=== PATIENT | female | born 1985 | race Caucasian/White ===

== ENCOUNTER → 2020-12-20 11:30 | Outpatient (ROUT) | payer OTHER, SELFPAY ==
[2020-12-20 11:38] LABS: Initial Volume 1.5 mL; Semen 30 min. Liquification? Yes
[2020-12-20 11:39] LABS: Final Volume 0.5 mL
== END ==
PROVIDERS: PCP Family Medicine; Visit Provider Obstetrics & Gynecology
DX: N97.9 Female infertility, unspecified (principal)
CPT/HCPCS: 58323

== ENCOUNTER → 2021-01-14 15:02 | Outpatient (CLI) | payer SELFPAY ==
[2021-01-14 16:15] LABS: Final Volume 0.5 mL; Initial Volume 1.5 mL; Semen 30 min. Liquification? Yes
== END ==
PROVIDERS: PCP Family Medicine; Referring Provider Specialist; Visit Provider Specialist
DX: N97.0 Female infertility associated with anovulation (principal)
CPT/HCPCS: 58323

== ENCOUNTER → 2021-01-26 08:09 | Outpatient (CLI) | payer OTHER, SELFPAY ==
[2021-01-26 10:21] LABS: HCG Quantitative /Beta subunit 39.4 mIU/mL
== END ==
PROVIDERS: PCP Family Medicine; Referring Provider Obstetrics & Gynecology; Visit Provider Obstetrics & Gynecology
DX: Z34.90 Encounter for supervision of normal pregnancy, unspecified, unspecified trimester (principal)
CPT/HCPCS: 36415; 84702

== ENCOUNTER → 2021-01-28 11:06 | Outpatient (CLI) | payer OTHER, SELFPAY ==
[2021-01-28 14:22] LABS: HCG Quantitative /Beta subunit 101 mIU/mL
== END ==
PROVIDERS: PCP Family Medicine; Referring Provider Obstetrics & Gynecology; Visit Provider Obstetrics & Gynecology
DX: Z34.90 Encounter for supervision of normal pregnancy, unspecified, unspecified trimester (principal)
CPT/HCPCS: 36415; 84702

== ENCOUNTER → 2021-02-03 11:38 | Outpatient (CLI) | payer OTHER, SELFPAY ==
[2021-02-03 12:19] LABS: HCG Quantitative /Beta subunit 1147.1 mIU/mL
== END ==
PROVIDERS: PCP Family Medicine; Referring Provider Obstetrics & Gynecology; Visit Provider Obstetrics & Gynecology
DX: Z34.90 Encounter for supervision of normal pregnancy, unspecified, unspecified trimester (principal)
CPT/HCPCS: 36415; 84702

== ENCOUNTER → 2021-02-09 17:04 | Outpatient (CLI) | payer OTHER, SELFPAY ==
[2021-02-09 21:05] LABS: HCG Quantitative /Beta subunit 13463 mIU/mL
== END ==
PROVIDERS: PCP Family Medicine; Referring Provider Obstetrics & Gynecology; Visit Provider Obstetrics & Gynecology
DX: Z34.90 Encounter for supervision of normal pregnancy, unspecified, unspecified trimester (principal)
CPT/HCPCS: 36415; 84702

== ENCOUNTER → 2021-03-14 16:00 | Outpatient (CLI) | payer OTHER, SELFPAY ==
[2021-03-14 17:25] LABS: Specimen Label NATERA KIT
[2021-03-14 17:32] LABS: Add Manual Diff / Slide Review NO; Basophils Absolute Auto 100 /uL (0-100); Basophils Percent Auto 0.5 % (0-2); Eosinophils Absolute Auto 0 /uL (0-450); Eosinophils Percent Auto 0.4 % (2-4); Hematocrit 35.7 % (36-46); Hemoglobin 12.3 g/dL (12.0-16.0); Lymphocytes Absolute Auto 1900 /uL (1100-4500); Lymphocytes Percent Auto 17.2 % (25-40); Mean Corpuscular HGB Conc 34.5 % (30-36); Mean Corpuscular Hemoglobin 31.1 PG (26-34); Mean Corpuscular Volume 90.1 fL (80-100); Monocytes Absolute Auto 300 /uL (0-900); Monocytes Percent Auto 3.1 % (3-14); Neutrophils Absolute Auto 8600 /uL (1500-7000); Neutrophils Percent Auto 78.8 % (50-75); Platelet Count 240 X10^3/uL (150-400); Red Blood Cell Count 3.96 X10^6/uL (4.0-5.2); Red Cell Distribution Width 13.1 % (11.6-14.8); White Blood Cell Count 10.9 X10^3/uL (4.5-11.0)
[2021-03-14 18:02] LABS: Appearance Urine UA CLEAR; Bilirubin Urine UA NEGATIVE (NEGATIVE); Color Urine UA YELLOW; Glucose Urine UA NEGATIVE (Negative); Ketones Urine UA NEGATIVE (NEGATIVE); Leukocyte Esterase Urine UA NEGATIVE (NEGATIVE); Nitrite Urine UA NEGATIVE (Negative); Occult Blood Urine UA TRACE-LYSED (Negative); Protein Urine UA NEGATIVE (Negative); Specific Gravity Urine UA 1.015 (1.000-1.035); Urobilinogen Urine UA 0.2 E.U./dL (0.2)
[2021-03-14 18:14] LABS: pH Urine UA 5.5 (4.5-8.0)
[2021-03-14 18:37] LABS: Hepatitis B Surface Antigen NEGATIVE s/c (NEGATIVE); Rubella Antibody IgG 28.5 IU/mL (>15)
[2021-03-14 20:46] LABS: Urine N gonorrhoeae NOT DETECTED
[2021-03-14 20:48] LABS: Urine Chlamydia NOT DETECTED
[2021-03-15 08:17] LABS: RPR Screen Non Reactive (Non Reactive)
== END ==
PROVIDERS: PCP Family Medicine; Referring Provider Obstetrics & Gynecology; Visit Provider Obstetrics & Gynecology
DX: Z3A.10 10 weeks gestation of pregnancy (principal); O30.001 Twin pregnancy, unspecified number of placenta and unspecified number of amniotic sacs, first trimester
CPT/HCPCS: 36415; 80055; 81003; 86850; 86900; 86901; 87086; 87491; 87591

== ENCOUNTER → 2021-04-21 11:34 | Outpatient (CLI) | payer OTHER, SELFPAY ==
[2021-04-24 14:08] LABS: Gestational Age Ultrasound (.); Insulin Dep Diabetes No (.); OSBR Risk 1IN 2018 (.); Results Report (.); Test Results *Screen Negative* (.)
== END ==
PROVIDERS: PCP Family Medicine; Referring Provider Obstetrics & Gynecology; Visit Provider Obstetrics & Gynecology
DX: Z34.92 Encounter for supervision of normal pregnancy, unspecified, second trimester (principal)
CPT/HCPCS: 36415; 82105

== ENCOUNTER → 2021-05-22 14:13 | Outpatient (CLI) | payer OTHER, SELFPAY ==
--- NOTE | 2021-05-22 14:14 | DI.US.S_ITS ---
PROCEDURE: US OB >= 14 WEEKS FETUS INDICATIONS: ANATOMY SCAN TWINS OUTSIDE/PRIOR DATING DATA: Last menstrual period (LMP): 12/30/2020 LMP-based estimated date of delivery (AURELIANO): 10/06/2021 First dating scan (date and location): 03/14/2021 Estimated date of delivery (AURELIANO) from first dating scan: 10/06/2021 TECHNIQUE: Real-time scanning was performed of the fetuses, with image documentation and biometric measurements. Endovaginal scanning: Not indicated COMPARISON: [facility], , OB >= 14 WEEKS FETUS, 05/08/2021, 14:13. FINDINGS: General: An intrauterine monochorionic and diamniotic twin is present, as evidenced by separate placentas, differing sexes, or an intervening membrane of greater than 2 mm. Amniotic fluid index (composite): 15.3 cm. Maternal cervical canal: 3.9 cm long and is closed. Normal lower limit is 2.5 cm. FETUS A: Fetus is located on the maternal left side, and is in variable presentation. Largest amniotic fluid pocket: 5.0 cm; normal range is 2-8 cm. Placental position is anterior, without previa. heart rate: 141 beats per minute. biometrics: Biparietal diameter: 5 cm, 21 weeks, 0 days Head circumference: 17.8 cm, 20 weeks, 2 days Abdominal circumference: 15.3 cm, 20 weeks, 3 days Femur length: 3.3 cm, 20 weeks, 1 day Clinically estimated gestational age: 20 weeks, 3 days Composite gestational age from present scan: 20 weeks, 3 days Estimated weight and percentile: 348 g, 41%. Anatomic survey: Neuro: Ventricles are normal at less than 10 mm. Cisterna magna is normal at 3-11 mm. Cerebellum is normal in size and morphology. Nuchal skin fold: Normal at less than 6 mm between 14 and 21 weeks gestational age. Face: Nose and lips, facial profile are normal. Spine: No evidence for spina bifida. Heart: Cardiac structures are not well seen due to position. Diaphragm: Diaphragm is intact. Stomach: Left-sided stomach is present. Kidneys: Not well seen. less than 7 mm in 3rd trimester. Cord: 3 vessel cord has orthotopic insertion. Cord insertion is approximately 3 cm from placental edge. Bladder: Normal in size. Extremities: All 4 extremities are visualized. FETUS B: Fetus is located on the maternal right side, and is in variable presentation. Largest amniotic fluid pocket: 5 cm; normal range is 2-8 cm. Placental position is anterior, without previa. heart rate: 136 beats per minute. biometrics: Biparietal diameter: 4.8 cm, 20 weeks, 4 days. Head circumference: 17.7 cm, 20 weeks, 1 day Abdominal circumference: 15.3 cm, 20 weeks, 3 days Femur length: 3.4 cm, 20 weeks, 5 days Clinically estimated gestational age: 20 weeks, 3 days Composite gestational age from present scan: 20 weeks, 3 days Estimated weight and percentile: 359 g, 50%. Anatomic survey: Neuro: Ventricles are normal at less than 10 mm. Cisterna magna is normal at 3-11 mm. Cerebellum is normal in size and morphology. Nuchal skin fold: Normal at less than 6 mm between 14 and 21 weeks gestational age. Face: Nose and lips, facial profile are normal. Spine: No evidence for spina bifida. Heart: 4 chambered heart is present, with normal ventricular outflow tracts. Diaphragm: Diaphragm is intact. Stomach: Left-sided stomach is present. Kidneys: No hydronephrosis. Normal ranges are less than 5 mm in 2nd trimester, less than 7 mm in 3rd trimester. Cord: 3 vessel cord has orthotopic insertion. Bladder: Normal in size. Extremities: All 4 extremities are visualized. IMPRESSION: 1. Twin live mono chorionic and diamniotic intrauterine gestation as described in detail above. 2. anatomic survey of fetus A is limited due to position. Cardiac structures, and bilateral kidneys are not well seen on this study. Fetus A cord insertion is approximately 3 cm from placental edge. Follow-up study is recommended. Rest of the anatomic survey is normal. 3. Normal anatomic survey for fetus B. We strive to produce accurate, complete, and clear reports of imaging services. To assist us in improving patient care, this report was composed using standard report templates and voice recognition software. Therefore, it may contain abnormal punctuation, insertions and/or omissions. Occasional wrong-word or sound-alike substitutions may occur. Though we review the report and make efforts to correct it, we do recommend that the report be read carefully in proper context to recognize any text inaccuracies. Dictated by: Neno Ferrer M.D. on 05/23/2021 at 10:39 Approved by: Neno Ferrer M.D. on 05/23/2021 at 11:00
== END ==
PROVIDERS: PCP Family Medicine; Referring Provider Obstetrics & Gynecology; Visit Provider Obstetrics & Gynecology
DX: O30.032 Twin pregnancy, monochorionic/diamniotic, second trimester (principal); Z3A.20 20 weeks gestation of pregnancy
CPT/HCPCS: 76811; 76812

== ENCOUNTER → 2021-07-04 11:01 | Outpatient (CLI) | payer OTHER, SELFPAY ==
[2021-07-04 12:41] LABS: Hemoglobin 11.9 g/dL (12.0-16.0)
[2021-07-04 13:00] LABS: GTT (PREG) 1 Hour PP 50gm Dose 83 mg/dL (76-139)
== END ==
PROVIDERS: PCP Family Medicine; Referring Provider Obstetrics & Gynecology; Visit Provider Obstetrics & Gynecology
DX: Z34.82 Encounter for supervision of other normal pregnancy, second trimester (principal); Z3A.36 36 weeks gestation of pregnancy
CPT/HCPCS: 36415; 82950; 85014; 85018

== ENCOUNTER 2021-07-25 09:39 | Outpatient (CLI) | payer OTHER, SELFPAY ==
--- NOTE | 2021-07-25 13:50 | PM.OBTRLD ---
Visit Information Visit Information Date of evaluation: 07/25/21 Primary OB Provider: Marta Collins On-call OB Provider: Marta Collins Reason for Evaluation: Yes non-stress test non-stress test reason: other (Monochorionic/diamniotic twins) [facility] Medical History (Updated 07/25/21 @ 11:50 by Marta Collins MD) Anxiety (~1999) GERD (gastroesophageal reflux disease) (~2018) Infertility (~2017) Insomnia (~1993) Kidney infection (~1989) Surgical History (Updated 03/10/21 @ 13:18 by Hailey Cowan, RN) Anesthesia Hx of breast implants, bilateral (~04/2019) [place] teeth extracted (~1999) Family History (Updated 03/10/21 @ 13:25 by Hailey Cowan, RAFAEL) Father History of heart attack Grandmother Multiple sclerosis Grandmother Colon cancer Esophageal cancer Grandfather Diabetes mellitus Social History (System 01/26/21 @ 08:29 by Dhara Espinal) marital status: number of children: 1 household members: spouse and children lives independently: Yes caregiver/support person: No housing: house pets and animals: No education level: vocational occupational status: employed current occupational exposures/hazards: No special anselmo needs: No seatbelt use: always do you feel safe at home: Yes Smoking Status: Never smoker second hand exposure: No alcohol intake: former substance use type: does not use during the past year weight has: decreased > 10 lbs well-balanced diet: daily or most days daily servings fruits/ve-4 caffeine: Yes (12 oz half caff coffee) Type(s) of exercise: walking, aerobic and weight lifting frequency: 3-4 times per week Evaluation Evaluation Baseline heart rate: 125 Variability: Moderate (11-25) monitor accelerations: Present Monitor Decelerations: Variable Contraction Frequency (minutes): 0 Category of Tracing: Appropriate for gestational age Diagnosis, Plan/Disposition Plan/Disposition Plan: Assessment: 35-year-old 1 para 0 at 29 weeks gestation with mono chorionic/diamniotic twins Appropriate for gestational age nonstress test x2 Plan: Follow-up in 1 week OB Disposition: home
== END 2021-07-25 10:58 | disposition home or self-care (01) ==
LOC: LABOR 10:49 → OB 07-26 14:28
PROVIDERS: PCP Family Medicine; Referring Provider Obstetrics & Gynecology; Visit Provider Obstetrics & Gynecology
DX: O30.033 Twin pregnancy, monochorionic/diamniotic, third trimester (principal); Z3A.29 29 weeks gestation of pregnancy
CPT/HCPCS: 59025; G0378; G0379

== ENCOUNTER 2021-08-02 10:45 | Outpatient (CLI) | payer OTHER, SELFPAY | END 2021-08-02 11:53 | disposition home or self-care (01) | LOC: OB 08-07 10:48 | PROVIDERS: PCP Family Medicine; Referring Provider Obstetrics & Gynecology; Visit Provider Obstetrics & Gynecology | DX: O09.513 Supervision of elderly primigravida, third trimester (principal); O30.003 Twin pregnancy, unspecified number of placenta and unspecified number of amniotic sacs, third trimester; Z3A.30 30 weeks gestation of pregnancy | CPT/HCPCS: 59025; G0378; G0379 ==

== ENCOUNTER 2021-08-09 09:19 | Outpatient (CLI) | payer OTHER, SELFPAY | END 2021-08-09 11:40 | disposition home or self-care (01) | LOC: LABOR 10:34 → OB 08-10 09:32 | PROVIDERS: PCP Family Medicine; Referring Provider Obstetrics & Gynecology; Visit Provider Obstetrics & Gynecology | DX: O30.003 Twin pregnancy, unspecified number of placenta and unspecified number of amniotic sacs, third trimester (principal); O09.513 Supervision of elderly primigravida, third trimester; Z3A.31 31 weeks gestation of pregnancy | CPT/HCPCS: 59025; G0378; G0379 ==

== ENCOUNTER 2021-08-18 11:00 | Outpatient (CLI) | payer OTHER, SELFPAY ==
--- NOTE | 2021-08-18 18:31 | P.TNLD_ITS ---
Visit Information Visit Information Date of evaluation: 08/18/21 Primary OB Provider: Marta Collins On-call OB Provider: Marta Collins Reason for Evaluation: Yes non-stress test non-stress test reason: other (Monochorionic/dichorionic twins) [facility] Medical History (Updated 07/25/21 @ 11:50 by Marta Collins MD) Anxiety (~1999) GERD (gastroesophageal reflux disease) (~2018) Infertility (~2017) Insomnia (~1993) Kidney infection (~1989) Surgical History (Updated 03/10/21 @ 13:18 by Hailey Cowan, RN) Anesthesia Hx of breast implants, bilateral (~04/2019) [place] teeth extracted (~1999) Family History (Updated 03/10/21 @ 13:25 by Hailey Cwoan, RAFAEL) Father History of heart attack Grandmother Multiple sclerosis Grandmother Colon cancer Esophageal cancer Grandfather Diabetes mellitus Social History (System 01/26/21 @ 08:29 by Dhara Espinal) marital status: number of children: 1 household members: spouse and children lives independently: Yes caregiver/support person: No housing: house pets and animals: No education level: vocational occupational status: employed current occupational exposures/hazards: No special anselmo needs: No seatbelt use: always do you feel safe at home: Yes Smoking Status: Never smoker second hand exposure: No alcohol intake: former substance use type: does not use during the past year weight has: decreased > 10 lbs well-balanced diet: daily or most days daily servings fruits/ve-4 caffeine: Yes (12 oz half caff coffee) Type(s) of exercise: walking, aerobic and weight lifting frequency: 3-4 times per week Evaluation Evaluation Baseline heart rate: 135 Variability: Moderate (11-25) monitor accelerations: Present Monitor Decelerations: Absent Status: Category l Diagnosis, Plan/Disposition Plan/Disposition Plan: Assessment: 35 year old at 33 weeks gestation with Monoamniotic/Dichorionic twins Reactive NST x2 Plan: D/C to home F/U 1 week OB Disposition: home
== END 2021-08-18 11:50 | disposition home or self-care (01) ==
LOC: OB 08-21 10:48
PROVIDERS: PCP Family Medicine; Referring Provider Obstetrics & Gynecology; Visit Provider Obstetrics & Gynecology
DX: O30.033 Twin pregnancy, monochorionic/diamniotic, third trimester (principal); Z3A.33 33 weeks gestation of pregnancy
CPT/HCPCS: 59025; G0378; G0379

== ENCOUNTER 2021-08-22 15:42 | Outpatient (CLI) | payer OTHER, SELFPAY | END 2021-08-22 16:50 | disposition home or self-care (01) | LOC: LABOR 16:22 → OB 08-24 07:22 | PROVIDERS: PCP Family Medicine; Referring Provider Obstetrics & Gynecology; Visit Provider Obstetrics & Gynecology | DX: O30.003 Twin pregnancy, unspecified number of placenta and unspecified number of amniotic sacs, third trimester (principal); Z3A.33 33 weeks gestation of pregnancy | CPT/HCPCS: 59025; G0378; G0379 ==

== ENCOUNTER 2021-08-29 12:32 | Outpatient (CLI) | payer OTHER, SELFPAY | END 2021-08-29 13:25 | disposition home or self-care (01) | LOC: LABOR 12:50 → OB 08-30 09:22 | PROVIDERS: PCP Family Medicine; Referring Provider Obstetrics & Gynecology; Visit Provider Obstetrics & Gynecology | DX: O30.033 Twin pregnancy, monochorionic/diamniotic, third trimester (principal); Z3A.34 34 weeks gestation of pregnancy | CPT/HCPCS: 59025; G0378; G0379 ==

== ENCOUNTER 2021-09-05 13:47 | Outpatient (CLI) | payer OTHER, SELFPAY | END 2021-09-05 14:40 | disposition home or self-care (01) | LOC: LABOR 14:48 → OB 09-06 07:42 | PROVIDERS: PCP Family Medicine; Referring Provider Obstetrics & Gynecology; Visit Provider Obstetrics & Gynecology | DX: O30.033 Twin pregnancy, monochorionic/diamniotic, third trimester (principal); Z3A.35 35 weeks gestation of pregnancy | CPT/HCPCS: 59025; G0378; G0379 ==

== ENCOUNTER → 2021-09-12 11:54 | Outpatient (CLI) | payer OTHER, SELFPAY ==
[2021-09-13 08:28] LABS: Strep Grp B PCR NEG for Grp B Strep
== END ==
PROVIDERS: PCP Family Medicine; Visit Provider Obstetrics & Gynecology
DX: Z34.83 Encounter for supervision of other normal pregnancy, third trimester (principal); Z3A.36 36 weeks gestation of pregnancy
CPT/HCPCS: 87653

== ENCOUNTER 2021-09-12 11:57 | Outpatient (CLI) | payer OTHER, SELFPAY | END 2021-09-12 12:40 | disposition home or self-care (01) | LOC: OB 09-14 14:24 | PROVIDERS: PCP Family Medicine; Referring Provider Obstetrics & Gynecology; Visit Provider Obstetrics & Gynecology | DX: O30.033 Twin pregnancy, monochorionic/diamniotic, third trimester (principal); Z3A.36 36 weeks gestation of pregnancy; Z34.83 Encounter for supervision of other normal pregnancy, third trimester | CPT/HCPCS: 59025; 87653; G0378; G0379 ==

== ENCOUNTER 2021-09-14 05:51 | Inpatient (IN) | payer OTHER, SELFPAY ==
[2021-09-14] VITALS (15 sets, daily range): BP systolic 83–141; BP diastolic 55–87; PULSE 51–89; RESP 12–20; TEMP 36–36.6; O2SAT 98–100
[2021-09-14 06:34] LABS: COVID19 -Nasal RAPID Negative (Negative)
[2021-09-14] MEDS: LACTATED RINGERS 1,000 ML 100 ML IV ×4 (06:36→20:12)
[2021-09-14 06:45] LABS: Add Manual Diff / Slide Review NO; Basophils Absolute Auto 0 /uL (0-100); Basophils Percent Auto 0.5 % (0-2); Eosinophils Absolute Auto 100 /uL (0-450); Hematocrit 35.8 % (36-46); Hemoglobin 12.1 g/dL (12.0-16.0); Lymphocytes Absolute Auto 1600 /uL (1100-4500); Lymphocytes Percent Auto 17.3 % (25-40); Mean Corpuscular HGB Conc 33.9 % (30-36); Mean Corpuscular Hemoglobin 31.3 PG (26-34); Mean Corpuscular Volume 92.5 fL (80-100); Monocytes Absolute Auto 500 /uL (0-900); Monocytes Percent Auto 5.5 % (3-14); Neutrophils Absolute Auto 7200 /uL (1500-7000); Neutrophils Percent Auto 75.7 % (50-75); Platelet Count 156 X10^3/uL (150-400); Red Blood Cell Count 3.87 X10^6/uL (4.0-5.2); Red Cell Distribution Width 13.3 % (11.6-14.8); White Blood Cell Count 9.5 X10^3/uL (4.5-11.0)
--- NOTE | 2021-09-14 07:41 | P.HPOB_ITS ---
OB HPI Date/Time Date of admission: 09/14/21 Date Patient Seen: 09/14/21 Time Patient Seen: 07:41 History of Present Condition Chief complaint: PRIMARY AURELIANO Calculator Estimated Delivery Date Method Current WG Current Estimate 10/06/21 LMP (Certain) 36w 6d Other Estimates 10/06/21 Ultrasound #1 36w 6d 10/07/21 Conception 36w 5d # 2 Estimated Gestational Age (weeks): 37 : 2 Para: 0 care: good care, initiated at week #, number of visits and pounds weight gain Dating criteria OB: LMP confirmed by 1st trimester US Ultrasounds: normal 1st trimester US and normal mid trimester US Obstetrical complications: other (Twins) Medical complications OB: none Indications Operative indications ( section): multiple gestation (mono/di) Preadmission Labs Last OB Lab Results: Blood Type A Positive 03/14/21 17:12 Antibody Screen Negative 03/14/21 17:12 Hematocrit 35.8 % (36-46) L 09/14/21 06:25 Hemoglobin 12.1 g/dL (12.0-16.0) 09/14/21 06:25 Hepatitis B Surface Antigen Negative s/c (NEGATIVE) 03/14/21 17 :12 Rubella Antibody 28.5 IU/mL (>15) 03/14/21 17:12 Glucose 1 Hour 83 mg/dL (76-139) 07/04/21 12:16 Group B Streptococcus (PCR) Neg for grp b strep 09/12/21 11:54 -: Chlamydia screen: negative, Gonorrhea screen: negative and Urine: negative -: PAP smear: Normal Genetic Screens: Cell-free DNA: Normal and Alpha-fetoprotein: Normal External Labs -: Urine: negative Prior (ies) Past Pregnancies Del. Date GA/Weeks Labor Lgth Wt Sex Route Outcome Anesthesia Place Delv Breastfeed Preg Comp Name 01/09/20 6 spontaneous spontaneous Delivery Date: 01/09/20 Last Updated by: Hailey Cowan R.N. Complete AB Evaluation Evaluation Baseline heart rate: 125 Variability: Moderate (11-25) monitor accelerations: Present Monitor Decelerations: Absent Status: Category l PFS Medical History (Updated 07/25/21 @ 11:50 by Marta Collins MD) Anxiety (~1999) GERD (gastroesophageal reflux disease) (~2018) Infertility (~2017) Insomnia (~1993) Kidney infection (~1989) Surgical History (Updated 03/10/21 @ 13:18 by Hailey Cowan, RN) Anesthesia Hx of breast implants, bilateral (~04/2019) [place] teeth extracted (~1999) Family History (Updated 03/10/21 @ 13:25 by Hailey Cowan RN) Father History of heart attack Grandmother Multiple sclerosis Grandmother Colon cancer Esophageal cancer Grandfather Diabetes mellitus Social History (System 01/26/21 @ 08:29 by Dhara Espinal) marital status: number of children: 1 household members: spouse and children lives independently: Yes caregiver/support person: No housing: house pets and animals: No education level: vocational occupational status: employed current occupational exposures/hazards: No special anselmo needs: No seatbelt use: always do you feel safe at home: Yes Smoking Status: Never smoker second hand exposure: No alcohol intake: former substance use type: does not use during the past year weight has: decreased > 10 lbs well-balanced diet: daily or most days daily servings fruits/ve-4 caffeine: Yes (12 oz half caff coffee) Type(s) of exercise: walking, aerobic and weight lifting frequency: 3-4 times per week Meds Home Medications and Allergies Home Medications Medication Instructions Recorded Confirmed Type prenat.vits,armando,yin-ghip-kttwb 1 tab PO DAILY 11/28/20 09/14/21 History progesterone micronized 200 mg 400 mg PO DAILY #30 caps 01/25/21 09/14/21 Rx capsule (Prometrium) aspirin 81 mg tablet,delayed 81 mg PO DAILY 03/10/21 09/14/21 History release (Lo-Dose Aspirin) docosahexaenoic acid 200 mg See Rx Instructions .Route .COMPLEX 03/10/21 09/14/21 History capsule ( DHA) lactobacillus combination no.9 4 PO DAILY 03/10/21 09/12/21 History billion cell capsule (Adult 50 Plus Probiotic) Allergies Allergy/AdvReac Type Severity Reaction Status Date / Time nitrofurantoin Allergy Intermediate Gastrointestinal Verified 09/12/21 10:48 [From Macrodantin] Upset Sulfa (Sulfonamide Allergy Intermediate Gastrointestinal Verified 09/12/21 10:48 Antibiotics) Upset OB Exam Narrative Exam Narrative: Generally: Patient is sitting up in bed, no acute distress Lungs: Clear to auscultation bilaterally Cardiovascular: Regular rate and rhythm Fundal height: 43 cm Estimated weight: 6 1/2 lb Extremities: 1+ edema Objective Labs Result Diagrams: 09/14/21 06:25 Labs: Laboratory Results - last 24 hr 09/14/21 09/14/21 06:10 06:25 WBC 9.5 RBC 3.87 L Hgb 12.1 Hct 35.8 L MCV 92.5 MCH 31.3 MCHC 33.9 RDW 13.3 Plt Count 156 Neut % (Auto) 75.7 H Lymph % (Auto) 17.3 L [place] % (Auto) 5.5 Eos % (Auto) 1.0 L Baso % (Auto) 0.5 Neut # (Auto) 7200 H Lymph # (Auto) 1600 [place] # (Auto) 500 Eos # (Auto) 100 Baso # (Auto) 0 SARS-CoV-2 (PCR) Negative Assessment and Plan Assessment and Plan Assessment and Plan narrative: Assessment: 35-year-old 2 para 0 at estimated gestational age of 37 weeks with mono chorionic/diamniotic twins Plan: Primary low-transverse section The risks, benefits, and alternatives to the procedure were explained to the patient. The risks including bleeding, infection, injury to the bowel, bladder, or ureters. She understands these risks and agrees to proceed. A full par Q was held and consent form was signed. Time Spent with Patient Total time spent with greater than 50% in coordination of care (as documented) at patient's floor/unit and/or counseling patient:: 15-24 minutes
--- NOTE | 2021-09-14 07:44 | PM.PREOP ---
Pre-operative Note COVID-19 COVID-19 status: Negative Result date/Date tested (Pos, Neg/Pending): 09/14/21 Criteria for continued procedure: Non-surgical alternatives not available or appropriate per current SOC Interval Note History & Physical reviewed/Exam performed by Physician: Yes Changes to H&P: No H&P completed within 30 days and has changed as indicated here:: 09/14/21
[2021-09-14] MEDS: CEFAZOLIN 2 GM/20 ML SYRINGE IV (08:00)
--- NOTE | 2021-09-14 08:09 | SUR.OPER ---
Supine on Padded OR bed, head on pillow, safety belt at thigh, arms secured on padded arm boards at <90 degrees abduction. Bump under right buttock. Legs uncrossed with pillow under knees, gel pad to heels, tape over blanket to lower legs. Directed and approved by surgeon
--- NOTE | 2021-09-14 08:34 | SUR.OPER ---
martinez inserted with ease, clear yellow urine was visualized in tubing prior to balloon inflation. secured prior to leaving OR
--- NOTE | 2021-09-14 08:48 | SUR.OPER ---
Viable baby girls born at B: 0842 and A: 0839. [place] blood (1 set each) and placenta sent with OB RN
--- NOTE | 2021-09-14 09:34 | PM.OBCS.1 ---
Operative Date/Time/Diagnoses Date of procedure: 09/14/21 Time of procedure: 09:34 Pre-op diagnosis: 37 weeks gestation [place] chorionic/diamniotic twin Breech presentation for baby A Post-op diagnosis: same Procedure & Clinicians Procedure: Primary low-transverse section Same procedure as scheduled: Yes Indications: 37 weeks gestation Bland chorionic/diamniotic twins Breech presentation for baby A Surgeon: Marta Marquez Yes if Unassisted: No Operation Research Analyst: Stefania Hubbard Reason for Operation Research Analyst: The miller head assistant wet process was necessary to retract upon entry of the abdomen and uterus. She assisted with delivery of both infants. On closure of the uterus and abdomen she retracted and clipped suture. She closed the contralateral fascia. Anesthesia Type: Spinal (With Duramorph) Operative Notes Findings: Baby A in the footling breech presentation, female Baby B in the vertex presentation, female Normal uterus, tubes, and ovaries Closure Type: primary Specimen(s): cord blood Intraoperative meds administered: Duramorph, Ketorolac and Pitocin Applied: Catheter (To continuous drainage) Estimated Blood Loss (mL): 350 Blood products transfused: none Procedure in detail: The patient was taken to the operating room where she was placed in the seated position. Spinal anesthesia was administered. She was then placed in the dorsal supine position with a leftward tilt. She was prepped and draped in the usual sterile fashion. A timeout was performed. After spinal analgesia was found to be adequate, a Pfannenstiel skin incision was made 2 fingerbreadths above the pubic symphysis and carried through to the underlying layer fascia. The fascia was nicked in the midline, and the incision extended bilaterally with the Hilliard scissors. The superior aspect of the fascial incision was grasped with a Lenore clamps, elevated, and the underlying rectus muscles dissected off sharply and bluntly. Attention was then turned to the inferior aspect of this incision which in a similar fashion was grasped with a Guero clamps, elevated, and the underlying rectus muscles dissected off sharply and bluntly. The rectus muscles were in the midline. The peritoneum was identified, grasped between 2 hemostats, and entered sharply with the Metzenbaum scissors. This incision was extended superiorly and inferiorly with good visualization of the bladder. The bladder blade was inserted. The vesicouterine peritoneum was identified, grasped with the pickup, and entered sharply with the Metzenbaum scissors. This incision was extended bilaterally, and the bladder flap was created digitally. The bladder blade was reinserted. The lower uterine segment was incised in a transverse fashion with the scalpel. Upon entering the amniotic sac there was a large amount of clear amniotic fluid. The was delivered by total breech extraction. The nose and mouth were suctioned with bulb suction. The remainder of the body delivered without difficulty. The cord was double clamped and cut after 1 minute. The infant was handed off to waiting RN and RT. While we were waiting to clamp and cut the first baby's cord, the second baby was delivered without difficulty in the vertex presentation. The nose and mouth were suctioned with bulb suction. The remainder of the body delivered without difficulty. The cord was double clamped and cut after 1 minute. The was handed off to awaiting RN and RT. The placenta was delivered manually. The uterus was cleared of all clots and debris. The uterine incision was repaired with #1 chromic in a running interlocking fashion, and a second layer the same suture was used for an imbricating layer. Hemostasis was achieved. The tubes and ovaries were examined and were found to be normal. The gutters were cleared of all clots and debris. The bladder flap was reapproximated using 2-0 Vicryl in a running fashion. The parietal peritoneum was closed using 2-0 Vicryl in a running fashion. The fascia was reapproximated using 0 Vicryl in a running fashion. Subcutaneous layer was copiously irrigated with warm normal saline. 6 simple interrupted sutures of 3-0 Vicryl were placed to reapproximate the subcutaneous layer. The skin was closed with 4-0 Monocryl in a subcuticular fashion. Steri-Strips were placed. An Aquacel dressing was placed. The uterus was expressed of a small amount of old blood. Sponge, lap, and instrument counts were correct x-2. The patient tolerated the procedure well, and was taken to PACU in stable condition. Complications: none [place] Baby 1: Infant Gender: Female Presentation: breech Details: [place] Placental Delivery Description: Expressed Cord Vessel Description: 3 Vessels score (1 min): 8 score (5 min): 8 weight: 5 lb 11.4 oz 2: Infant Gender: Female Presentation: vertex Position: Left Occiput Anterior Placental Delivery Description: Expressed Cord Vessel Description: 3 Vessels score (1 min): 8 score (5 min): 9 weight: 5 lb 8.9 oz Post-operative Condition: stable Disposition: PACU Aftercare: routine postop
--- NOTE | 2021-09-14 10:02 | SUR.PHASEI ---
0950: Pt A&Ox4, VSS, denies any distress, and ready to transfer to room. Report given to RAFAEL Nicolas using SBAR with time allowed for questions. Pt transferred to room 5 bedside handoff given.
[2021-09-14] MEDS: OXYCODONE IR 5 MG TABLET PO ×2 (14:09→20:13)
--- NOTE | 2021-09-14 15:46 | PM.EVENT ---
Event Note Date Patient Seen: 09/14/21 Time Patient Seen: 15:46 Event Note (Rapid Response, Code, or fall): Called to patient's bedside due to hemorrhage. Patient had approximately 1300 cc blood loss in clot and watery blood after a . Vital signs were stable. On examination: Fundus is 3 above you and deviated to the left side. Plan: To the operating room for evacuation of clot, and possible placement of Bakri balloon. The risks, benefits, and alternatives to the procedure were explained to the patient. The risks including bleeding, infection, and uterine perforation. She understands these risks and agrees to proceed. A full par Q was held and consent form was signed.
--- NOTE | 2021-09-14 15:54 | SUR.OPER ---
Lithotomy on padded OR bed, head on pillow, arms secured on padded arm boards at <90 degrees abduction. Legs secured in padded yellow fins stirrups.
[2021-09-14] MEDS: TRANEXAMIC ACID 1,000 MG in SODIUM CHLORIDE 0.9% 100 ML 200 MG IV (16:28)
[2021-09-14 16:38] LABS: Hematocrit 25.2 % (36-46); Hemoglobin 8.4 g/dL (12.0-16.0)
[2021-09-14] MEDS: LACTATED RINGERS 500 ML 1000 ML IV (16:54)
--- NOTE | 2021-09-14 16:57 | SUR.PHASEI ---
1633 Pt's BP 83/55 (53)> MD Fernandes requested and gave verbal order for 500 ML bolus of LR to help with pressures. Pt A&Ox4.
[2021-09-14 17:10] LABS: Add Manual Diff / Slide Review NO; Basophils Absolute Auto 100 /uL (0-100); Basophils Percent Auto 0.5 % (0-2); Eosinophils Absolute Auto 100 /uL (0-450); Eosinophils Percent Auto 0.5 % (2-4); Lymphocytes Absolute Auto 1700 /uL (1100-4500); Lymphocytes Percent Auto 12.3 % (25-40); Mean Corpuscular HGB Conc 34.2 % (30-36); Mean Corpuscular Hemoglobin 31.7 PG (26-34); Mean Corpuscular Volume 92.8 fL (80-100); Monocytes Absolute Auto 900 /uL (0-900); Monocytes Percent Auto 6.3 % (3-14); Neutrophils Absolute Auto 11200 /uL (1500-7000); Neutrophils Percent Auto 80.4 % (50-75); Platelet Count 164 X10^3/uL (150-400); Red Blood Cell Count 2.65 X10^6/uL (4.0-5.2); Red Cell Distribution Width 13.1 % (11.6-14.8); White Blood Cell Count 13.9 X10^3/uL (4.5-11.0)
--- NOTE | 2021-09-14 17:11 | SUR.PHASEI ---
Report called to Cely HALL who was updated on pt's condition.
[2021-09-14] MEDS: METHYLERGONOVINE 0.2 MG/ML VIAL IM (17:24)
[2021-09-14 19:48] LABS: Hematocrit 22.4 % (36-46); Hemoglobin 7.6 g/dL (12.0-16.0)
[2021-09-15] MEDS: METHYLERGONOVINE 0.2 MG TABLET PO ×3 (00:10→12:24)
[2021-09-15] MEDS: OXYCODONE IR 5 MG TABLET PO ×2 (00:10→04:25)
[2021-09-15 01:18] VITALS: BP 115/66; PULSE 69; RESP 16; TEMP 36.8
[2021-09-15] MEDS: IBUPROFEN 600 MG TABLET PO ×2 (04:25→19:16)
--- NOTE | 2021-09-15 07:57 | PM.GYNOP.1 ---
Operative Date/Time/Diagnoses Date of procedure: 09/14/21 Time of procedure: 16:20 Pre-op diagnosis: hemorrhage Large amount of clot in the uterus Status post primary section Post-op diagnosis: same Procedure & Clinicians Procedure: Procedures Operation Date: 09/14/21 07:45 Actual Procedure Side Surgeon p Section (Twins) Marta Collins MD Operation Date: 09/14/21 16:00 Actual Procedure Side Surgeon p Dilation and Curettage Marta Collins MD Indications: hemorrhage of clot and watery blood Uterus full of clots Surgeon: Marta Collins Anesthesia Type: Spinal Operative Notes Findings: 800 cc of clot and blood in the uterus Uterus at 3 above U at the beginning of the procedure Closure Type: not applicable Specimen(s): none Applied: catheter (Su to continuous drainage) Estimated blood loss (mL): 800 Blood products transfused: none Procedure in detail: After informed consent was obtained, the patient was taken to the operating room where she was placed in the dorsal supine position. After adequate spinal anesthesia was achieved, she was placed in the dorsal lithotomy position, and prepped and draped in the usual sterile fashion. A time-out was performed. A bivalve speculum was placed into the vagina and a large amount of clot came out of the vagina. Ring forceps were used inside the uterus to remove a large amount of clot. A # 12 suction curette was placed into the uterus. Five passes with suction revealed a large amount of blood and clot. Pitocin was given in the IV fluids. The uterus contracted down well. The fundus was at firm at the completion of the procedure. Complications: none Post-operative Condition: stable Disposition: PACU Plan for aftercare: To the center after recovery
[2021-09-15 08:43] LABS: Hematocrit 29.9 % (36-46); Hemoglobin 10.1 g/dL (12.0-16.0)
[2021-09-15] MEDS: ACETAMINOPHEN 325 MG TABLET 650 MG PO ×2 (10:10→19:16)
[2021-09-15] MEDS: OXYCODONE IR 10 MG TABLET PO ×4 (10:15→23:19)
[2021-09-15] MEDS: DOCUSATE 100 MG CAPSULE 200 MG PO (12:25)
[2021-09-16] MEDS: IBUPROFEN 600 MG TABLET PO ×3 (01:28→14:14)
[2021-09-16] MEDS: ACETAMINOPHEN 325 MG TABLET 650 MG PO ×3 (01:28→14:14)
[2021-09-16] MEDS: OXYCODONE IR 5 MG TABLET PO ×2 (03:59→10:38)
--- NOTE | 2021-09-16 07:19 | PM.OBPNLAB ---
Date/Time Date Patient Seen: 09/15/21 Time Patient Seen: 09:20 Status status: Category l
[2021-09-16] MEDS: DOCUSATE 100 MG CAPSULE 200 MG PO (08:29)
[2021-09-16] MEDS: PRENATAL VIT,CALC/IRON/FOLIC 1 TABLET 1 TAB PO (08:29)
--- NOTE | 2021-09-17 15:11 | P.PNOB_ITS ---
Subjective - OB Subjective Patient comments: no complaints, pain well controlled and tolerating diet baby status: doing well (X2) and nursing well (X2) [place] feeding status: breast and bottle feeding Date Patient Seen: 09/15/21 Interval history: 35-year-old 1 para 1002 postop day # 1 status post primary low- transverse section and returned to the operating room for evacuation of uterine clots. She received 2 units of packed red blood cells overnight. She is feeling well this morning. is going well. Pain is well controlled. Bleeding has been normal lochia. Patient not feeling lightheaded or dizzy. Exam Vital Signs (past 8 hours): Oxygen Delivery Method Room Air Narrative Exam Narrative: Generally: Patient is sitting up in bed, nursing infant, no acute distress Lungs: Clear to auscultation bilaterally Cardiovascular: Regular rate and rhythm Fundus: Firm at U -1 Incision: Clean dry and intact with Aquacel dressing Extremities: 1+ edema, negative Homans Objective Labs Result Diagrams: 09/15/21 08:25 Assessment & Plan Plan day: 1 plan OB: routine postop care Time Spent With Patient Time: Total time spent is greater than 50% in coordination of care (as documented) at patient's floor/unit and/or counseling patient: Time with patient: 15-24 minutes
--- NOTE | 2021-09-17 15:14 | P.DS_ITS ---
Discharge Providers Provider Date of admission: 09/14/21 05:51 Discharge Date: 09/16/21 Primary care physician: Jean Estrada MD Consults: 09/14/21 10:17 Consult to Heater Operator Helper Routine Comment: Discharge provider: Marta Collins MD Summary Hospital Course Date Patient Seen: 09/15/21 Time Patient Seen: 07:30 Diagnoses: Thirty-seven weeks gestation [place] chorionic/diamniotic twins Status post primary low-transverse section Status post return to operating room for evacuation of uterine clot after hemorrhage Hospital Course: Patient is a 35-year-old 1 para 1002 who presented on September 14, 2021 for a scheduled primary low-transverse section of mono chorionic/diamniotic twins at 37 weeks gestation. She underwent this procedure without complication. Several hours later patient had a hemorrhage and was found to have a uterus full of clot. She was taken back to the operating room for evacuation of clot under spinal anesthesia. She received 2 units of packed red blood cells due to tachycardia and feeling lightheaded. The remainder of her course was unremarkable. She was discharged home on day # 2. She is to follow up at 1 week for Aquacel dressing removal. Peripartum Data Delivery Method: Section Procedures: Primary low-transverse section Spinal anesthesia Return to operating room for evacuation of uterine clot under spinal anesthesia complications: uterine atony (With uterus full of clot) [place] 1: Gender: Female Disposition of : home 2: Gender: Female Disposition of : home Status at Discharge Cognitive/behavioral status at discharge: oriented Functional status at discharge: independent ambulation Overall status at discharge: patient is progressing back to baseline Time Spent with Patient Time attestation: Total time spent providing and/or coordinating discharge services: Time spent: Less than 30 minutes Objective Labs Result Diagrams: 09/15/21 08:25 Exam Vital Signs (past 8 hours): Oxygen Delivery Method Room Air Narrative Exam Narrative: Generally: Patient is sitting up in bed, no acute distress Lungs: Clear to auscultation bilaterally Cardiovascular: Regular rate and rhythm Fundus: Firm at U -1 Incision: Clean dry and intact with Aquacel dressing Extremities: 1+ edema, negative Homans Discharge Plan Discharge Plan Patient Disposition: Home Provider Discharge Comment: Call with fever, chills, or redness or drainage around the incision Call with bleeding more than a pad in an hour Ibuprofen 600 mg every 6 hours as needed Tylenol 650 mg every 6 hours as needed Discharge orders & Medications Prescriptions: New oxycodone 5 mg tablet 5 mg PO Q4H PRN (Reason: pain) Qty: 30 0RF Rx Instructions: 1-2 tabs every 4 hours as needed docusate sodium [Colace] 100 mg capsule 100 mg PO DAILY Qty: 30 0RF Continued prenat.vits,armando,lqw-yrdn-youdt Tablet 1 tab PO DAILY Adult 50 Plus Probiotic 4 billion cell capsule PO DAILY DHA 200 mg capsule See Rx Instructions .ROUTE .COMPLEX Rx Instructions: per doctor as prescribed Discontinued progesterone micronized [Prometrium] 200 mg capsule 400 mg PO DAILY Qty: 30 4RF aspirin [Lo-Dose Aspirin] 81 mg tablet,delayed release (DR/EC) 81 mg PO DAILY Follow up/Referrals: Marta Collins MD [Physician] - 1 Week (If no call from 's office for an appointment, please call of and make an appointment for aquacel removal in 1 week.) Diet/Activity/Treatments Diet: Regular Activity: No heavy lifting Skin/Wound/Dressing Care Report to your healthcare provider any signs of infection, such as:: chills, fever, increased pain, unusual drainage and unusual redness Dressing: Do not remove Visit Report/Discharge Packet Instructions: DI for , DI for Prescription Opioid Use Discharge Data Primary Care Provider: Jean Estrada
== END 2021-09-16 14:20 | disposition home or self-care (01) | DRG 787 ==
PROVIDERS: Admitting Provider Obstetrics & Gynecology; PCP Family Medicine; Referring Provider Obstetrics & Gynecology; Visit Provider Obstetrics & Gynecology
PROC: 10D00Z1 Extraction of Products of Conception, Low, Open Approach (ICD-10-PCS; CPT 59514; principal; 2021-09-14 07:45)
DX: O32.8XX1 Maternal care for other malpresentation of fetus, fetus 1 (principal); O72.2 Delayed and secondary postpartum hemorrhage; O30.033 Twin pregnancy, monochorionic/diamniotic, third trimester; Z37.2 Twins, both liveborn; Z3A.36 36 weeks gestation of pregnancy
CPT/HCPCS: 36415; 36430; 59050; 59160; 59510; 59514; 85014; 85018; 85025; 86850; 86900; 86901; 87635; C9803; P9016; J0171; J0690; J1885; J2210; J2250; J2274; J2405; J2590; J2765

== ENCOUNTER → 2022-12-11 19:49 | Outpatient (ROUT) | payer OTHER, SELFPAY ==
[2022-12-11 22:34] LABS: Urine N gonorrhoeae NOT DETECTED
[2022-12-11 22:46] LABS: Urine Chlamydia NOT DETECTED
== END ==
PROVIDERS: PCP Family Medicine; Visit Provider Obstetrics & Gynecology
DX: Z34.81 Encounter for supervision of other normal pregnancy, first trimester (principal); Z3A.08 8 weeks gestation of pregnancy
CPT/HCPCS: 87491; 87591

== ENCOUNTER → 2022-12-20 14:18 | Outpatient (CLI) | payer OTHER, SELFPAY ==
--- NOTE | 2022-12-20 14:19 | DI.US.S_ITS ---
PROCEDURE: US OB <= 14 WEEKS FETUS INDICATIONS: BLEEDING IN EARLY OUTSIDE/PRIOR DATING DATA: Last menstrual period (LMP): 10/12/2022. LMP-based estimated date of delivery (AURELIANO): 07/19/2023. First dating scan (date and location): Today's exam. Estimated date of delivery (AURELIANO) from first dating scan: 07/15/2023. TECHNIQUE: Real-time scanning was performed of the fetus and maternal pelvic organs, with image documentation. Endovaginal scanning was also performed to better visualize the fetus and maternal ovaries. COMPARISON: [facility], , OB <= 14 WEEKS FETUS, 12/11/2022, 15:06. FINDINGS: Single living intrauterine . Embryo: Fetus measures 3.5 centimeters, 10 weeks 3 days. Heart rate: 157 beats per minute Maternal organs: Ovaries simple appearing right ovarian cyst. Left ovary not visualized due to overlying bowel gas. Subchorionic bleed close to the closed cervical os, measuring 4.4 x 1.5 x 4.9 centimeter. IMPRESSION: Single living intrauterine at 10 weeks 3 days, AURELIANO of 07/15/2023. Findings are concordant with clinical dating. Subchorionic bleed measuring 4.4 x 1.5 x 4.9 centimeter. We strive to produce accurate, complete, and clear reports of imaging services. To assist us in improving patient care, this report was composed using standard report templates and voice recognition software. Therefore, it may contain abnormal punctuation, insertions and/or omissions. Occasional wrong-word or sound-alike substitutions may occur. Though we review the report and make efforts to correct it, we do recommend that the report be read carefully in proper context to recognize any text inaccuracies. Dictated by: Maxime Ortiz M.D. on 12/20/2022 at 15:24 Approved by: Maxime Ortiz M.D. on 12/20/2022 at 15:25
== END ==
PROVIDERS: PCP Family Medicine; Referring Provider Obstetrics & Gynecology; Visit Provider Obstetrics & Gynecology
DX: O20.9 Hemorrhage in early pregnancy, unspecified (principal); Z3A.10 10 weeks gestation of pregnancy
CPT/HCPCS: 36415; 76801; 76817

== ENCOUNTER → 2022-12-20 15:09 | Outpatient (CLI) | payer OTHER, SELFPAY ==
[2022-12-21 07:45] LABS: Miscellaneous to LabCorp NATERA KIT
== END ==
PROVIDERS: PCP Family Medicine; Referring Provider Obstetrics & Gynecology; Visit Provider Obstetrics & Gynecology
DX: Z34.81 Encounter for supervision of other normal pregnancy, first trimester (principal); Z3A.10 10 weeks gestation of pregnancy
CPT/HCPCS: 36415

== ENCOUNTER → 2023-02-05 14:27 | Outpatient (CLI) | payer OTHER, SELFPAY ==
[2023-02-05 14:50] LABS: Add Manual Diff / Slide Review NO; Basophils Absolute Auto 0 /uL (0-100); Basophils Percent Auto 0.4 % (0-2); Eosinophils Absolute Auto 100 /uL (0-450); Eosinophils Percent Auto 0.5 % (2-4); Hematocrit 35.1 % (36-46); Hemoglobin 12.1 g/dL (12.0-16.0); Lymphocytes Absolute Auto 1600 /uL (1100-4500); Mean Corpuscular HGB Conc 34.5 % (30-36); Mean Corpuscular Hemoglobin 31.5 PG (26-34); Mean Corpuscular Volume 91.3 fL (80-100); Monocytes Absolute Auto 400 /uL (0-900); Monocytes Percent Auto 3.6 % (3-14); Neutrophils Absolute Auto 9500 /uL (1500-7000); Neutrophils Percent Auto 81.5 % (50-75); Platelet Count 231 X10^3/uL (150-400); Red Blood Cell Count 3.85 X10^6/uL (4.0-5.2); Red Cell Distribution Width 14.4 % (11.6-14.8); White Blood Cell Count 11.6 X10^3/uL (4.5-11.0)
[2023-02-05 15:49] LABS: Hepatitis B Surface Antigen NEGATIVE s/c (NEGATIVE)
[2023-02-05 16:07] LABS: HIV 1 & 2 Ab/Ag 4th Gen Combo NEGATIVE (NEGATIVE); Hep C Virus Ab w/Reflex Quant NEGATIVE s/c (NEGATIVE)
[2023-02-06 09:32] LABS: RPR Screen Non Reactive (Non Reactive); Varicella IgG Antibody 672 index (Immune >165)
[2023-02-07 23:13] LABS: AFP Value 29.8 ng/mL (.); Gest Age on Col Date 16.6 weeks (.); Insulin Dep Diabetes No (.); OSBR Risk 1IN 10000 (.); Results Report (.); Test Results *Screen Negative* (.)
== END ==
PROVIDERS: PCP Family Medicine; Referring Provider Obstetrics & Gynecology; Visit Provider Obstetrics & Gynecology
DX: Z34.82 Encounter for supervision of other normal pregnancy, second trimester (principal); Z3A.16 16 weeks gestation of pregnancy
CPT/HCPCS: 36415; 80055; 82105; 86787; 86803; 86850; 86900; 86901; 87086; 87389

== ENCOUNTER → 2023-03-11 12:31 | Outpatient (CLI) | payer OTHER, SELFPAY ==
--- NOTE | 2023-03-11 12:33 | DI.US.S_ITS ---
PROCEDURE: US OB >= 14 WEEKS FETUS INDICATIONS: 20 Week Anatomy Scan OUTSIDE/PRIOR DATING DATA: Last menstrual period (LMP): 10/12/2022. LMP-based estimated date of delivery (AURELIANO): 07/19/2023. First dating scan (date and location): 12/21/2023. Estimated date of delivery (AURELIANO) from first dating scan: 07/15/2023. The calculations are made using the clinical AURELIANO of 07/19/2023. TECHNIQUE: Real-time scanning was performed of the fetus, with image documentation and biometric measurements. Endovaginal scanning: Not performed COMPARISON: [facility], , OB >= 14 WEEKS FETUS, 09/12/2021, 11:50. FINDINGS: General: A single living intrauterine gestation is present. Presentation: Vertex. Placenta: Placental position is anterior , without previa. Amniotic fluid index: 12.7 cm, normal range is 5-24 cm. Single deepest vertical pocket is 4.5 cm. heart rate: 144 beats per minute. Maternal cervical canal: 3.6 cm long. Normal lower limit is 2.5 cm. biometrics: Biparietal diameter: 5.3 centimeters, 22 weeks Head circumference: 20.3 centimeters, 22 weeks 3 days Abdominal circumference: 18.2 centimeters, 23 weeks 0 days Femur length: 4.0 centimeters, 22 weeks 6 days Clinically estimated gestational age: 21 weeks 3 days Composite gestational age from present scan: 22 weeks 4 days Estimated weight and percentile: 539 grams, 90th percentile Anatomic survey: Neuro: Ventricles are non-dilated at less than 10 mm. Cisterna magna is normal at 3-11 mm. Cerebellum is normal in size and morphology. Nuchal skin fold: Normal at less than 6 mm between 14-21 weeks gestational age. Face: Nose and lips, facial profile are normal. Spine: Not well seen. Heart: 4-chambered heart is present, with normal ventricular outflow tracts. Diaphragm: Diaphragm is intact. Echogenic focus within the right hepatic lobe measuring 0.6 x 0.6 x 0.5 centimeters. Stomach: Left-sided stomach is present. Kidneys: No hydronephrosis. Normal is less than 5 mm in 2nd trimester, less than 7 mm in 3rd trimester. Cord: 3-vessel cord has orthotopic insertion. Bladder: Normal in size. Extremities: All 4 extremities identified. IMPRESSION: Single living intrauterine at 21 weeks 3 days, AURELIANO of 07/19/2023. Estimated weight of 539 grams, 98th percentile. Echogenic focus within the liver, nonspecific. Findings could represent a calcification less likely mass. Close attention on follow-up versus MFM referral. Spine not well visualized. Short-term follow-up should be considered. We strive to produce accurate, complete, and clear reports of imaging services. To assist us in improving patient care, this report was composed using standard report templates and voice recognition software. Therefore, it may contain abnormal punctuation, insertions and/or omissions. Occasional wrong-word or sound-alike substitutions may occur. Though we review the report and make efforts to correct it, we do recommend that the report be read carefully in proper context to recognize any text inaccuracies. Dictated by: Maxime Ortiz M.D. on 03/11/2023 at 16:54 Approved by: Maxime Ortiz M.D. on 03/11/2023 at 17:04
== END ==
PROVIDERS: PCP Family Medicine; Referring Provider Obstetrics & Gynecology; Visit Provider Obstetrics & Gynecology
DX: Z34.82 Encounter for supervision of other normal pregnancy, second trimester (principal); Z3A.21 21 weeks gestation of pregnancy
CPT/HCPCS: 76811

== ENCOUNTER → 2023-03-18 13:33 | Outpatient (CLI) | payer OTHER, SELFPAY ==
[2023-03-18 15:32] LABS: Culture Indicated Urine Cult Not Indicated
== END ==
PROVIDERS: PCP Family Medicine; Referring Provider Student in an Organized Health Care Education/Training Program; Visit Provider Student in an Organized Health Care Education/Training Program
DX: Z34.82 Encounter for supervision of other normal pregnancy, second trimester (principal); R30.0 Dysuria
CPT/HCPCS: 81001

== ENCOUNTER → 2023-03-19 10:25 | Outpatient (CLI) | payer OTHER, SELFPAY ==
[2023-03-19 10:48] LABS: Urine Volume 10mL (spun)
[2023-03-19 10:56] LABS: Appearance Urine UA CLEAR; Bilirubin Urine UA NEGATIVE (NEGATIVE); Color Urine UA YELLOW; Glucose Urine UA NEGATIVE (Negative); Ketones Urine UA NEGATIVE (NEGATIVE); Leukocyte Esterase Urine UA TRACE (NEGATIVE); Nitrite Urine UA NEGATIVE (Negative); Occult Blood Urine UA NEGATIVE (Negative); Protein Urine UA NEGATIVE (Negative); Specific Gravity Urine UA <=1.005 (1.000-1.035); Urobilinogen Urine UA 0.2 E.U./dL (0.2)
[2023-03-19 11:22] LABS: Bacteria Urine None Seen; RBC Urine None Seen (0-5/HPF); Squamous Epithelial Cell Urine 0-1 /HPF (0-5/HPF); WBC Urine 1-5/HPF (0-5/HPF)
== END ==
PROVIDERS: PCP Family Medicine; Visit Provider Specialist
DX: R30.0 Dysuria (principal); R82.998 Other abnormal findings in urine
CPT/HCPCS: 81001; 87077; 87086; 87186

== ENCOUNTER → 2023-03-29 10:20 | Outpatient (CLI) | payer OTHER, SELFPAY ==
--- NOTE | 2023-03-29 10:20 | DI.US.S_ITS ---
PROCEDURE: US OB FOLLOW UP INDICATIONS: FOLLOW UP SPINE NOT VISUALIZED AND LIVER ABNORMALITY OUTSIDE/PRIOR DATING DATA: Last menstrual period (LMP): 10/12/2022. LMP-based estimated date of delivery (AURELIANO): 07/19/2023. First dating scan (date and location): 12/21/2023. Estimated date of delivery (AURELIANO) from first dating scan: 07/15/2023. The calculations are made using the clinical AURELIANO of 07/19/2023. TECHNIQUE: Real-time scanning was performed of the fetus, with image documentation. Endovaginal scanning: Not performed COMPARISON: [facility], , US OB >= 14 WEEKS FETUS, 03/11/2023, 12:49. FINDINGS: A single living intrauterine gestation is present. Presentation: Breech. Placenta: Placental position is anterior, without previa. Amniotic fluid index: 21.5 cm, normal range is 5-24 cm. Single deepest vertical pocket is 8.6 cm. heart rate: 141 beats per minute. Maternal cervical canal: 3.7 cm long. Normal lower limit is 2.5 cm. Clinically estimated gestational age: 24 weeks 0 days The spine is within normal limits. Redemonstration of echogenic shadowing structure within the right hepatic lobe measuring 6 mm, similar appearance to prior. IMPRESSION: 1. Single live intrauterine at 24 weeks and 0 days. 2. The spine is within normal limits. 3. Stable echogenic shadowing structure within the liver, nonspecific and may represent calcification or less likely a mass. Recommend attention on follow-up versus MFM referral as clinically indicated. Dictated by: Mehrdad Middleton M.D. on 03/29/2023 at 14:28 Approved by: Mehrdad Middleton M.D. on 03/29/2023 at 14:31
[2023-03-29 12:46] LABS: Hematocrit 35.2 % (36-46)
[2023-03-29 13:09] LABS: GTT (PREG) 1 Hour PP 50gm Dose 85 mg/dL (76-139)
== END ==
LOC: US 10:20
PROVIDERS: PCP Family Medicine; Referring Provider Specialist; Visit Provider Specialist
DX: Z34.82 Encounter for supervision of other normal pregnancy, second trimester (principal); Z3A.24 24 weeks gestation of pregnancy
CPT/HCPCS: 76816; 82950; 85014; 85018

== ENCOUNTER → 2023-04-15 14:21 | Outpatient (CLI) | payer OTHER, SELFPAY ==
[2023-04-16 06:36] LABS: Toxoplasma gohndii IgG <3.0 IU/mL (0.0-7.1); Toxoplasma gondii IgM <3.0 AU/mL (0.0-7.9)
== END ==
PROVIDERS: PCP Family Medicine; Referring Provider Obstetrics & Gynecology; Visit Provider Obstetrics & Gynecology
DX: Z34.82 Encounter for supervision of other normal pregnancy, second trimester (principal)
CPT/HCPCS: 36415; 86644; 86645; 86777; 86778

== ENCOUNTER → 2023-07-01 15:32 | Outpatient (CLI) | payer OTHER, SELFPAY ==
[2023-07-02 13:02] LABS: Strep Grp B PCR NEG for Grp B Strep
== END ==
PROVIDERS: PCP Family Medicine; Visit Provider Obstetrics & Gynecology
DX: Z34.83 Encounter for supervision of other normal pregnancy, third trimester (principal); Z3A.36 36 weeks gestation of pregnancy
CPT/HCPCS: 87653

== ENCOUNTER 2023-07-15 06:00 | Inpatient (IN) | payer OTHER, SELFPAY ==
[2023-07-15 06:32] VITALS: BP 127/84
[2023-07-15 06:37] LABS: Add Manual Diff / Slide Review NO; Basophils Absolute Auto 100 /uL (0-100); Basophils Percent Auto 0.8 % (0-2); Eosinophils Absolute Auto 100 /uL (0-450); Eosinophils Percent Auto 1.2 % (2-4); Hemoglobin 12.3 g/dL (12.0-16.0); Lymphocytes Absolute Auto 2000 /uL (1100-4500); Lymphocytes Percent Auto 16.5 % (25-40); Mean Corpuscular Hemoglobin 31.4 PG (26-34); Mean Corpuscular Volume 92.2 fL (80-100); Monocytes Absolute Auto 600 /uL (0-900); Monocytes Percent Auto 5.1 % (3-14); Neutrophils Absolute Auto 9200 /uL (1500-7000); Neutrophils Percent Auto 76.4 % (50-75); Platelet Count 177 X10^3/uL (150-400); Red Cell Distribution Width 13.7 % (11.6-14.8); White Blood Cell Count 12.1 X10^3/uL (4.5-11.0)
--- NOTE | 2023-07-15 07:35 | P.HPOB_ITS ---
OB HPI Date/Time Date of admission: 07/15/23 Date Patient Seen: 07/15/23 Time Patient Seen: 07:36 History of Present Condition Chief complaint: AURELIANO Calculator 2 Estimated Delivery Date Method Current WG Current Estimate 07/19/23 LMP (Certain) 39w 3d Other Estimates 07/15/23 Ultrasound #1 40w 0d Estimated Gestational Age (weeks): 39+3 : 3 Para: 1 care: good care, initiated at week # (8), number of visits (10) and pounds weight gain (60) Dating criteria OB: LMP confirmed by 1st trimester US Ultrasounds: normal 1st trimester US and normal mid trimester US Obstetrical complications: none Medical complications OB: none Indications Operative indications ( section): previous uterine surgery Preadmission Labs Last OB Lab Results: 2 Blood Type A Positive 07/15/23 06:20 Antibody Screen Negative 07/15/23 06:20 Hematocrit 36.0 % (36-46) 07/15/23 06:20 Hemoglobin 12.3 g/dL (12.0-16.0) 07/15/23 06:20 Hepatitis B Surface Antigen Negative s/c (NEGATIVE) 02/05/23 14 :36 Hepatitis C Antibody Negative s/c (NEGATIVE) 02/05/23 14:36 Rubella Antibody 26.0 IU/mL (>15) 02/05/23 14:36 Varicella-Zoster IgG Antibody 672 index (Immune >165) 02/05/23 14:36 Glucose 1 Hour 85 mg/dL (76-139) 03/29/23 12:08 Group B Streptococcus (PCR) Neg for grp b strep 07/01/23 15:32 -: Chlamydia screen: negative, Gonorrhea screen: negative and Urine: negative -: PAP smear: Normal Genetic Screens: Cell-free DNA: Normal and Alpha-fetoprotein: Normal External Labs -: Urine: negative Prior (ies) Past Pregnancies Del. Date GA/Weeks Labor Lgth Wt Sex Route Outcome Anesthesia Place Delv Breastfeed Preg Comp Name 01/09/20 6 spontaneous spontaneous 09/14/21 36.6 Female live - IH 6 months multiple gestation Delivery Date: 01/09/20 Last Updated by: Hailey Cowan R.N. Complete AB Delivery Date: 09/14/21 Last Updated by: MD Elida Christensen 5# 11.4 oz Amanda 5# 8.9 oz Evaluation Evaluation Baseline heart rate: 135 Variability: Moderate (11-25) monitor accelerations: Present Monitor Decelerations: Absent Status: Category l PFSH Medical History (Updated 06/04/23 @ 17:20 by Mary Curtis DO) Infertility Kidney infection (~1989) Insomnia (~1993) Anxiety (~1999) GERD (gastroesophageal reflux disease) (~2018) Surgical History (Updated 12/23/22 @ 22:06 by Marta Collins MD) Status post section [place] teeth extracted (~1999) Anesthesia Hx of breast implants, bilateral (~04/2019) Family History (Updated 12/04/22 @ 15:06 by Evonne Kraft RN) Father History of heart attack Grandmother Multiple sclerosis Grandmother Colon cancer Esophageal cancer Grandfather Diabetes mellitus Social History (System 01/26/21 @ 08:29 by Dhara Espinal) marital status: number of children: 3 household members: spouse and children lives independently: Yes caregiver/support person: Yes housing: house pets and animals: No education level: vocational occupational status: previously employed current occupational exposures/hazards: No special anselmo needs: No travel history: recent seatbelt use: always helmet use: No (counseled to do so) water heater temp set < 120 deg: Yes working smoke detector in home: Yes fire extinguisher in home: Yes carbon monox detector in home: Yes firearms in home: Yes firearms unloaded and locked: Yes do you feel safe at home: Yes Smoking Status: Never smoker second hand exposure: No alcohol intake: former substance use type: does not use during the past year weight has: other well-balanced diet: daily or most days daily servings fruits/ve-4 caffeine: Yes (12 oz half caff coffee) Type(s) of exercise: walking, aerobic and weight lifting frequency: 3-4 times per week Meds Home Medications and Allergies Home Medications Medication Instructions Recorded Confirmed Type docosahexaenoic acid 200 mg See Rx Instructions .Route .COMPLEX 03/10/21 07/08/23 History capsule ( DHA) lactobacillus combination no.9 4 PO DAILY 03/10/21 07/08/23 History billion cell capsule (Adult 50 Plus Probiotic) aspirin 81 mg tablet,delayed 81 mg PO DAILY 06/04/23 07/08/23 History release (Adult Aspirin Regimen) Allergies Allergy/AdvReac Type Severity Reaction Status Date / Time nitrofurantoin AdvReac Intermediate Gastrointestinal Verified 07/08/23 13:43 [From Macrodantin] Upset Sulfa (Sulfonamide AdvReac Intermediate Gastrointestinal Verified 07/08/23 13:43 Antibiotics) Upset OB Exam Narrative Exam Narrative: HEENT: No thyromegaly, no anterior cervical or supraclavicular lymphadenopathy. Lungs:Clear to auscultation bilaterally, no wheezes. Cardiovascular: Regular rate and rhythm, no murmurs, rubs, or gallops. Abdomen: Well-healed Pfannenstiel scars. No hepatosplenomegaly. No masses palpable. Fundal height: 40 cm Estimated weight: 8 lb Extremities: No edema Objective Labs 07/15/23 06:20 Labs: Laboratory Results - last 24 hr 07/15/23 06:20 WBC 12.1 H RBC 3.90 L Hgb 12.3 Hct 36.0 MCV 92.2 MCH 31.4 MCHC 34.0 RDW 13.7 Plt Count 177 Neut % (Auto) 76.4 H Lymph % (Auto) 16.5 L [place] % (Auto) 5.1 Eos % (Auto) 1.2 L Baso % (Auto) 0.8 Neut # (Auto) 9200 H Lymph # (Auto) 2000 [place] # (Auto) 600 Eos # (Auto) 100 Baso # (Auto) 100 Blood Type A Positive Antibody Screen Negative Assessment and Plan Assessment and Plan Assessment and Plan narrative: Assessment: 37-year-old 3 para 1012 with a history of a previous section Currently at 39 weeks' gestation Plan: Repeat low-transverse section The risks, benefits, and alternatives to the procedure were explained to the patient. The risks including bleeding, infection, injury to the bowel, bladder, or ureters. She understands these risks and agrees to proceed. A full par Q was held and consent form was signed. Time Spent with Patient Total time spent with greater than 50% in coordination of care (as documented) at patient's floor/unit and/or counseling patient:: less than 15 minutes
[2023-07-15] MEDS: CITRIC ACID/SODIUM CITRATE 15 ML SOLUTION 30 ML PO (07:39)
--- NOTE | 2023-07-15 07:41 | PM.PREOP ---
Pre-operative Note Interval Note History & Physical reviewed/Exam performed by Physician: Yes Changes to H&P: No H&P completed within 30 days and has changed as indicated here:: 07/15/23
[2023-07-15] MEDS: CEFAZOLIN 2 GM/100 ML PREMIX 100 ML IV (08:10)
[2023-07-15] MEDS: ACETAMINOPHEN IV 1,000 MG/100 ML VIAL 400 MG IV (08:20)
[2023-07-15] MEDS: LACTATED RINGERS 1,000 ML 999 ML IV ×2 (08:35→09:19)
--- NOTE | 2023-07-15 08:40 | SUR.OPER ---
Supine on Padded OR bed, head on pillow, safety belt at thigh, arms secured on padded arm boards at <90 degrees abduction. Bump under right buttock. Legs uncrossed with pillow under knees, gel pad to heels, tape over blanket to lower legs.
--- NOTE | 2023-07-15 09:16 | SUR.OPER ---
Viable baby boy delivered. TOB at 0844, placenta delivered at 0847. Placenta and cord blood given to OB RNs.
[2023-07-15 09:33] VITALS: BP 99/52; PULSE 58; RESP 15; TEMP 36.2; O2SAT 95
[2023-07-15 09:38] VITALS: BP 97/51; PULSE 55; RESP 18; O2SAT 96
[2023-07-15 09:44] VITALS: BP 99/58; PULSE 52; RESP 11; O2SAT 95
--- NOTE | 2023-07-15 09:44 | PM.OBCS.1 ---
Operative Date/Time/Diagnoses Date of procedure: 07/15/23 Time of procedure: 09:44 Pre-op diagnosis: 39 weeks' gestation Previous section Post-op diagnosis: same Procedure & Clinicians Procedure: Repeat low-transverse section Same procedure as scheduled: Yes Indications: 37-year-old 3 para 0112 at 39-,3/7 weeks gestation with a previous section. She presents today for repeat low-transverse section. Surgeon: Marta Collins Click Yes if Unassisted: No Drill Press Set Up Operator Radial: Virginia Ellington Anesthesia Type: Spinal (with Duramorph) Operative Notes Findings: Live male Direct OP presentation Closure Type: primary Specimen(s): cord blood and placenta Intraoperative meds administered: Duramorph, Ketorolac and Pitocin Applied: Catheter (To continuous drainage) Estimated Blood Loss (mL): 500 Blood products transfused: none Procedure in detail: The patient was taken to the operating room where she was placed in the seated position. Spinal anesthesia with Duramorph was administered. The patient was then placed in the dorsal supine position with a leftward tilt. She was prepped and draped in the usual sterile fashion. A timeout was performed. After spinal analgesia was found to be adequate, a Pfannenstiel skin incision was made through the previous incision and carried through to the underlying layer fascia. The fascia was nicked in the midline, and the incision extended bilaterally with the Hilliard scissors. The superior aspect of the fascial incision was grasped with a Guero clamps, elevated, and the underlying rectus muscles dissected off sharply and bluntly. Attention was then turned to the inferior aspect of this incision which in a similar fashion was grasped with a [place] clamps, elevated, and the underlying rectus muscles dissected off sharply and bluntly. The rectus muscles were in the midline. The peritoneum was identified, grasped between 2 hemostats, and entered sharply with the Metzenbaum scissors. This incision was extended superiorly and inferiorly with good visualization of the bladder. The bladder blade was inserted. The vesicouterine peritoneum was identified, grasped with the pickup, and entered sharply with the Metzenbaum scissors. This incision was extended bilaterally, and the bladder flap was created digitally. The bladder blade was reinserted. The lower uterine segment was incised in a transverse fashion with the scalpel. Upon entering the amniotic sac there was moderate amount of clear amniotic fluid. The was found to be in the direct occiput posterior presentation. The head was delivered without difficulty. The nose and mouth were suctioned with bulb suction. The remainder of the body delivered without difficulty and wrapped in a warm blanket. The cord was double clamped and cut after 1 minute. The infant was handed off to waiting RN and RT. The placenta was delivered by expression. The uterus was cleared of all clots and debris. A ring forceps was used to open the cervix and then handed off of the field. The uterine incision was repaired with #1 chromic in a running interlocking fashion, and a second layer the same suture was used for an imbricating layer. Hemostasis was achieved. The tubes and ovaries were examined and were found to be normal. The gutters were cleared of all clots and debris. The bladder flap was reapproximated using 2-0 Vicryl in a running fashion. The parietal peritoneum was closed using 2-0 Vicryl in a running fashion. The fascia was reapproximated using 0 Vicryl in a running fashion. The subcutaneous layer was copiously irrigated with warm normal saline. 5 simple interrupted sutures of 3-0 Vicryl were placed to reapproximate the subcutaneous layer. The skin was closed with 4-0 Monocryl in a subcuticular fashion. Steri-Strips were placed. A Telfa and Medipore tape were placed. The uterus was expressed of a small amount of old blood. Sponge, lap, and instrument counts were correct x-2. The patient tolerated the procedure well, and was taken to PACU in stable condition. Complications: none Baby 1: Infant Gender: Male Presentation: vertex Position: Occiput Posterior Placental Delivery Description: Manual Removal Cord Vessel Description: 3 Vessels and Clamped/Cut (after one minute) score (1 min): 9 score (5 min): 9 weight: 9 lb 6 oz Post-operative Condition: stable Disposition: PACU Aftercare: routine postop
[2023-07-15 09:48] VITALS: BP 101/49; PULSE 59; RESP 16; TEMP 36; O2SAT 95
--- NOTE | 2023-07-15 09:58 | SUR.PHASEI ---
Jacque OB RN, in PACU during stay and received bedside report. Patient transferred to the center and left in care of RN.
[2023-07-15] MEDS: TRANEXAMIC ACID 1,000 MG in SODIUM CHLORIDE 0.9% 100 ML 200 MG IV (11:17)
[2023-07-15] MEDS: METHYLERGONOVINE 0.2 MG/ML VIAL IM (12:19)
[2023-07-15] MEDS: OXYTOCIN PREMIX 30 UNIT/500 ML PLAST..BAG 200 UNIT IV (12:20)
[2023-07-15] MEDS: fentaNYL 100 MCG/2 ML INJ 50 MCG IV (12:30)
--- NOTE | 2023-07-15 12:43 | PM.EVENT ---
Event Note Date Patient Seen: 07/15/23 Time Patient Seen: 12:43 Event Note (Rapid Response, Code, or fall): Called per RN with concerns of worsening PPH s/p RCS at 0945. EBL at time of procedure 500. At time of call RN reports additional 900mL QBL. Received routine pitocin (30u) x1, additional single dose TXA. On entry into room pt resting comfortably in bed, NAD. BP 107/52, HR 50. Mentation appropriate. Fundal massage with immediate passage of large clot burden, continued trickle thereafter. Orders given for and pt received additional uterotonics: methergine IM x1, 30u pitocin in 1L NS. Bedside US initially notable for significant intra-uterine clot burden. With serial fundal massage excellent tone now noted without additional bleeding. EMS again visualized and noted to be thin. H/H and fibrinogen ordered, verbal report of interventions given to on-call provider (Dr. Collins) regarding course of events. Maternal vitals remain stable. QBL including intraoperative EBL 500 now 1761mL total, stage 3 PPH. Continue close interval monitoring, frequent fundal/peripad checks, vitals per protocol. Instructions given to notify on-call provider in [facility] of fibrinogen <370, maternal tachycardia/hypotension, recurrent bleeding.
[2023-07-15 12:53] LABS: Hematocrit 30.2 % (36-46); Hemoglobin 10.2 g/dL (12.0-16.0)
[2023-07-15 13:00] LABS: Fibrinogen 241 mg/dL (238-498)
[2023-07-15] MEDS: OXYCODONE IR 5 MG TABLET PO ×2 (14:30→22:02)
[2023-07-15] MEDS: ACETAMINOPHEN 325 MG TABLET 650 MG PO ×2 (14:30→22:03)
[2023-07-15] MEDS: KETOROLAC 30 MG/ML VIAL IV (15:55)
[2023-07-15 20:11] LABS: Hematocrit 29.2 % (36-46); Hemoglobin 9.9 g/dL (12.0-16.0)
[2023-07-16] MEDS: KETOROLAC 30 MG/ML VIAL IV ×2 (02:05→08:21)
[2023-07-16 05:51] LABS: Add Manual Diff / Slide Review NO; Basophils Absolute Auto 0 /uL (0-100); Basophils Percent Auto 0.1 % (0-2); Eosinophils Absolute Auto 100 /uL (0-450); Eosinophils Percent Auto 0.4 % (2-4); Hematocrit 25.2 % (36-46); Hemoglobin 8.7 g/dL (12.0-16.0); Lymphocytes Absolute Auto 2100 /uL (1100-4500); Lymphocytes Percent Auto 11.7 % (25-40); Mean Corpuscular HGB Conc 34.5 % (30-36); Mean Corpuscular Hemoglobin 31.5 PG (26-34); Mean Corpuscular Volume 91.6 fL (80-100); Monocytes Absolute Auto 1000 /uL (0-900); Monocytes Percent Auto 5.5 % (3-14); Neutrophils Absolute Auto 15000 /uL (1500-7000); Neutrophils Percent Auto 82.3 % (50-75); Platelet Count 169 X10^3/uL (150-400); Red Blood Cell Count 2.76 X10^6/uL (4.0-5.2); Red Cell Distribution Width 13.5 % (11.6-14.8); White Blood Cell Count 18.2 X10^3/uL (4.5-11.0)
[2023-07-16] MEDS: OXYCODONE IR 5 MG TABLET PO ×4 (07:39→18:45)
[2023-07-16] MEDS: ACETAMINOPHEN 325 MG TABLET 650 MG PO ×3 (07:39→20:29)
[2023-07-16] MEDS: ferumoxytoL 510 MG in SODIUM CHLORIDE 0.9% 100 ML 468 MG IV (08:22)
[2023-07-16] MEDS: DOCUSATE 100 MG CAPSULE PO (08:22)
[2023-07-16] MEDS: PRENATAL VIT,CALC/IRON/FOLIC 1 TABLET 1 TAB PO (08:22)
[2023-07-16] MEDS: IBUPROFEN 600 MG TABLET PO ×2 (14:11→20:29)
--- NOTE | 2023-07-16 16:42 | P.PNOB_ITS ---
Subjective - OB Subjective Patient comments: pain well controlled, tolerating diet, flatus present and other (voiding without catheter, c/o feeling tired) baby status: doing well and nursing well feeding status: exclusively breast feeding Date Patient Seen: 07/16/23 Time Patient Seen: 06:40 Interval history: POD #1 s/p repeat C section, PPH of approx 2000cc. Pt has been up to void. Exam Vital Signs (past 8 hours): Oxygen Delivery Method Room Air Narrative Exam Narrative: Gen: Sitting up in bed, nursing , NAD Fundus: Firm U/-1 Incision: C/D/I with dressing Ext: 1+ edema, Negative Eva's Objective Labs 07/16/23 05:26 Labs: Laboratory Results - last 24 hr 07/15/23 07/16/23 20:05 05:26 WBC 18.2 H D RBC 2.76 L Hgb 9.9 L 8.7 L Hct 29.2 L 25.2 L MCV 91.6 MCH 31.5 MCHC 34.5 RDW 13.5 Plt Count 169 Neut % (Auto) 82.3 H Lymph % (Auto) 11.7 L [place] % (Auto) 5.5 Eos % (Auto) 0.4 L Baso % (Auto) 0.1 Neut # (Auto) 10820 H Lymph # (Auto) 2100 [place] # (Auto) 1000 H Eos # (Auto) 100 Baso # (Auto) 0 Assessment & Plan Assessment and Plan (1) S/P repeat low transverse : Status: Acute (2) hemorrhage: Status: Acute Assessment and plan: Assessment: POD#1 s/p R LTCS and PPH Feeling fatigued Plan: Iron infusion Anticipate discharge 07/17/23 Plan day: 1 Comments: Iron infusion today Anticipate discharge 07/16/23 Time Spent With Patient Time: Total time spent is greater than 50% in coordination of care (as documented) at patient's floor/unit and/or counseling patient: Time with patient: 15-24 minutes
[2023-07-16] MEDS: OXYCODONE IR 10 MG TABLET PO (22:50)
[2023-07-16] MEDS: LACTATED RINGERS 1,000 ML 1000 ML IV (23:15)
[2023-07-17] MEDS: LANOLIN OINT 7 GM 1 APPLIC TOP (00:14)
[2023-07-17] MEDS: IBUPROFEN 600 MG TABLET PO ×4 (02:46→20:45)
[2023-07-17] MEDS: ACETAMINOPHEN 325 MG TABLET 650 MG PO ×2 (02:46→08:28)
[2023-07-17] MEDS: OXYCODONE IR 10 MG TABLET PO (02:46)
[2023-07-17 06:18] LABS: Add Manual Diff / Slide Review NO; Basophils Absolute Auto 100 /uL (0-100); Basophils Percent Auto 0.6 % (0-2); Eosinophils Absolute Auto 100 /uL (0-450); Eosinophils Percent Auto 1.2 % (2-4); Hematocrit 24.9 % (36-46); Hemoglobin 8.7 g/dL (12.0-16.0); Lymphocytes Absolute Auto 2100 /uL (1100-4500); Lymphocytes Percent Auto 19.9 % (25-40); Mean Corpuscular HGB Conc 34.8 % (30-36); Mean Corpuscular Hemoglobin 32.2 PG (26-34); Mean Corpuscular Volume 92.5 fL (80-100); Monocytes Absolute Auto 500 /uL (0-900); Monocytes Percent Auto 4.9 % (3-14); Neutrophils Absolute Auto 7800 /uL (1500-7000); Neutrophils Percent Auto 73.4 % (50-75); Platelet Count 164 X10^3/uL (150-400); Red Blood Cell Count 2.69 X10^6/uL (4.0-5.2); Red Cell Distribution Width 14.3 % (11.6-14.8); White Blood Cell Count 10.6 X10^3/uL (4.5-11.0)
[2023-07-17] MEDS: DOCUSATE 100 MG CAPSULE PO ×2 (08:27→08:30)
[2023-07-17] MEDS: OXYCODONE IR 5 MG TABLET PO ×4 (08:29→20:03)
[2023-07-17 09:18] VITALS: BP 114/58; PULSE 63; RESP 15; TEMP 36.7
[2023-07-17 09:24] VITALS: BP 121/70; PULSE 97; RESP 16; TEMP 37.3
[2023-07-17 09:38] VITALS: BP 129/75; PULSE 97; RESP 16; TEMP 37.2
[2023-07-17 10:47] VITALS: BP 116/64; PULSE 90; RESP 16; TEMP 36.9
[2023-07-17 11:16] VITALS: BP 115/66; PULSE 92; RESP 16; TEMP 36.7
[2023-07-17] MEDS: FUROSEMIDE 20 MG/2 ML VIAL IV (11:40)
--- NOTE | 2023-07-17 14:02 | P.PNOB_ITS ---
Subjective - OB Subjective Patient comments: other (Persistent headache and right ear echoing) baby status: doing well and nursing well Narrative: Postop day # 2 status post repeat low-transverse section. Patient received 1 unit of blood this morning due to feeling pretty fatigued. She also has a persistent headache and echoing in her right ear. Date Patient Seen: 07/17/23 Time Patient Seen: 14:02 Exam Vital Signs (past 8 hours): - 07/17/23 09:18 07/17/23 09:24 07/17/23 09:38 Temperature 98.0 F 99.1 F 98.9 F Pulse Rate 63 97 H 97 H Respiratory Rate 15 16 16 Blood Pressure 114/58 L 121/70 129/75 07/17/23 10:47 07/17/23 11:16 Temperature 98.5 F 98.0 F Pulse Rate 90 92 H Respiratory Rate 16 16 Blood Pressure 116/64 115/66 Oxygen Delivery Method Room Air Narrative Exam Narrative: Generally: Patient is sitting up in bed, no acute distress Lungs: Clear to auscultation bilaterally Cardiovascular: Regular rate and rhythm Fundus: Firm at U -2 Incision: Clean dry and intact with MediPort dressing Extremities: 1+ edema, negative Homans Objective Labs 07/17/23 05:57 Labs: Laboratory Results - last 24 hr 07/15/23 07/17/23 06:20 05:57 WBC 10.6 RBC 2.69 L Hgb 8.7 L Hct 24.9 L MCV 92.5 MCH 32.2 MCHC 34.8 RDW 14.3 Plt Count 164 Neut % (Auto) 73.4 Lymph % (Auto) 19.9 L [place] % (Auto) 4.9 Eos % (Auto) 1.2 L Baso % (Auto) 0.6 Neut # (Auto) 7800 H Lymph # (Auto) 2100 [place] # (Auto) 500 Eos # (Auto) 100 Baso # (Auto) 100 Blood Type A Positive Antibody Screen Negative Crossmatch See Detail Assessment & Plan Assessment and Plan (1) S/P repeat low transverse : Status: Acute (2) hemorrhage: Status: Acute Plan day: 2 Comments: Plan: Status post 1 unit of packed red blood cell IV Lasix We will check H&H and BMP 4 hours after transfusion Compression hose Anticipate discharge July 18, 2023 Time Spent With Patient Time: Total time spent is greater than 50% in coordination of care (as documented) at patient's floor/unit and/or counseling patient: Time with patient: 15-24 minutes
[2023-07-17] MEDS: BUTALB/APAP/CAFFEINE 50/325/40 TABLET 1 EACH PO ×2 (14:15→20:45)
[2023-07-17 15:42] LABS: Hematocrit 30.1 % (36-46); Hemoglobin 10.2 g/dL (12.0-16.0)
[2023-07-17 16:05] LABS: NT-proBNP (BNP-Adult 18+) < 20 pg/mL (<125)
[2023-07-17 16:47] LABS: BUN Creatinine Ratio 11.5 (6-22); Blood Urea Nitrogen 7 mg/dL (7-17); Calcium 8.1 mg/dL (8.4-10.2); Carbon Dioxide 27 mmol/L (22-32); Chloride 105 mmol/L (98-107); Estimated Glomerular Filt Rate > 60 mL/min (>60); Glucose 86 mg/dL (70-100); HEMOLYSIS < 15 (0-50); Potassium 3.9 mmol/L (3.4-5.1); Sodium 136 mmol/L (137-145)
--- NOTE | 2023-07-17 17:26 | P.PCN_ITS ---
Regional Block Pre-procedure PMH/ROS narrative: second call to PP for c/o severe headache FRANCO worse upon standing sitting 6/10 when lying flat 0/10 with first call attempted least invasive measures such as fluids, fioricet, caffeine. pt states no improvement after approx 2 hours. Labs: Hct 30.1 % (36-46) L 07/17/23 15:30 Plt Count 164 X10^3/uL (150-400) 07/17/23 05:57 Medications: Current Medications Generic Name Dose Route Start Last Admin Trade Name Freq PRN Reason Stop Dose Admin Acetaminophen/Butalbital/Caffeine 1 each 07/17/23 13:33 07/17/23 14:15 Butalb/Apap/Caffeine 50/325/40 Tablet PO 1 each Q6HR PRN Administration Headache Carboprost Tromethamine 250 mcg 07/15/23 11:04 Carboprost 250 Mcg/Ml Ampul IM Q90M PRN Bleeding Docusate Sodium 100 mg 07/16/23 09:00 07/17/23 08:30 Docusate 100 Mg Capsule PO 100 mg DAILY STEPHIE Administration Emollient Ointment 1 applic 07/15/23 11:04 07/17/23 00:14 Lanolin Oint 7 Gm TOP 1 applic PRN PRN Administration Skin protectant Oxytocin/Lactated Ringer's 30 unit in 500 mls @ 200 mls/hr 07/15/23 11:04 07/15/23 12:20 Oxytocin Premix IV 200 mls/hr NOW PRN Administration Bleeding Protocol Ibuprofen 600 mg 07/16/23 14:30 07/17/23 14:14 Ibuprofen 600 Mg Tablet PO 600 mg Q6H STEPHIE Administration Magnesium Hydroxide 30 ml 07/15/23 11:04 Magnesium Hydroxide 30 Ml Udc PO BEDTIME PRN Constipation Methylergonovine Maleate 0.2 mg 07/15/23 11:04 Methylergonovine 0.2 Mg Tablet PO Q6H PRN Bleeding Misoprostol 800 mcg 07/15/23 11:04 Misoprostol 200 Mcg Tablet MI NOW PRN Bleeding Misoprostol 400 mcg 07/15/23 11:04 Misoprostol 200 Mcg Tablet SL NOW PRN Bleeding Naloxone HCl 0.2 mg 07/15/23 11:04 Naloxone 0.4 Mg/Ml Vial IV Q2MIN PRN Opiate Reversal Ondansetron HCl 4 mg 07/15/23 11:04 Ondansetron 4 Mg/2 Ml Inj IV Q6H PRN Nausea And Vomiting Oxycodone HCl 5 mg 07/15/23 11:04 07/17/23 15:59 Oxycodone Ir 5 Mg Tablet PO 5 mg Q4H PRN Administration Pain, Moderate (4-6) Oxycodone HCl 10 mg 07/15/23 11:04 07/17/23 02:46 Oxycodone Ir 10 Mg Tablet PO 10 mg Q4H PRN Administration Pain, Severe (7-10) Oxytocin 10 unit 07/15/23 11:04 Oxytocin 10 Unit/Ml Vial IM NOW PRN Bleeding Vit/Calcium/Iron/Folic Ac 1 tab 07/16/23 09:00 07/16/23 08:22 Vit,Calc/Iron/Folic 1 Tablet PO 1 tab DAILY STEPHIE Administration Rho Immune Globulin 1,500 unit 07/15/23 11:04 Rho(D) Immune Globulin 1,500 Unit Syringe IM NOW PRN Prevent Rh incomatibility Witch Kaity/Glycerin 1 each 07/15/23 11:04 Witch Kaity/Glycerin Pads TOP Q30M PRN Itching Allergies: Allergies Allergy/AdvReac Type Severity Reaction Status Date / Time nitrofurantoin AdvReac Intermediate Gastrointestinal Verified 07/08/23 13:43 [From Macrodantin] Upset Sulfa (Sulfonamide AdvReac Intermediate Gastrointestinal Verified 07/08/23 13:43 Antibiotics) Upset --: obtained 20 mL autologous blood from 20 g catheter performed by RN using aseptic technique l3 l4 interspace identified pt drape and prep with sterile technique 3 mL lidocaine 1% skin wheel tuohy inserted and KAYDEN felt at 6 cm with saline slowly injected 20 mL autolagous blood pt states immediate relief of pain pain 0/10 patient instructed to lie flat for 2 hours if possible. refrain from heavy lifting as well for 24 hours. continue PRN meds and oral rehydration and caffeine. Procedure Insertion date: 07/17/23 Insertion time: 17:20 Prep/Local: betadine x3 Interspace: l3/l4 Needle: 17 gauge Tuohy Loss of resistance with: saline KAYDEN at (cm): 6 Post-procedure Anesthesia date START: 07/17/23 Anesthesia time START: 16:47 Anesthesia date END: 05/22/24 Anesthesia time END: 17:32 Post-procedure Anesthesia Assessment: Yes CV function: HR/BP stable, Yes Resp function: RR/sat/airway adequate, Yes Post-op hydration adequate, Yes Pain contr ol adequate, Yes Nausea & vomiting absent, Yes Temperature > 36 C and Yes Mental status appropriate
[2023-07-18] MEDS: OXYCODONE IR 5 MG TABLET PO ×3 (00:02→09:45)
[2023-07-18] MEDS: ACETAMINOPHEN 325 MG TABLET 650 MG PO ×2 (02:36→08:31)
[2023-07-18] MEDS: IBUPROFEN 600 MG TABLET PO ×2 (02:36→08:32)
[2023-07-18] MEDS: DOCUSATE 100 MG CAPSULE PO (08:30)
[2023-07-18] MEDS: PRENATAL VIT,CALC/IRON/FOLIC 1 TABLET 1 TAB PO (08:31)
[2023-07-18 09:01] VITALS: BP 118/76; PULSE 92; RESP 17; TEMP 36.9
[2023-07-18 09:45] VITALS: TEMP 36.9
--- NOTE | 2023-08-21 23:39 | PM.OBDS.1 ---
Discharge Providers Provider Date of admission: 07/15/23 06:00 Discharge Date: 07/18/23 Primary care physician: Jean Estrada MD Consults: 07/15/23 11:04 Consult to [employer] Routine Comment: Discharge provider: Marta Collins MD Summary Hospital Course Date Patient Seen: 07/18/23 Time Patient Seen: 07:50 Diagnoses: Thirty-nine weeks' gestation Previous section hemorrhage Blood transfusion Iron infusion Spinal headache Blood patch Spinal anesthesia Hospital Course: Patient is a 37-year-old 3 para 2013 who presented on July 15, 2023 for a scheduled repeat section. She underwent this procedure without complication. Later that day she had a hemorrhage of a 1000 cc. On 07/15 she received an iron infusion. On 07/16 due to significant fatigue she received 1 unit of packed red blood cells. On 07/17 she complained of a headache that was positional. She received a blood patch for a spinal headache. She was discharged home later that day. She was tolerating a diet. She was feeling much better. No nausea or vomiting. Pain was well controlled. Peripartum Data Infant Delivery Method: Section Procedures: Spinal anesthesia Repeat low-transverse section Blood transfusion of 1 unit of packed red blood cells Iron infusion Blood patch complications: spinal headache (Received a blood patch), transfusion (1 unit of packed red blood cells) and uterine atony ( hemorrhage of a 1000 cc) 1: Gender: Male Disposition of : home Discharge Diagnosis (1) S/P repeat low transverse : Status: Acute (2) hemorrhage: Status: Acute Status at Discharge Cognitive/behavioral status at discharge: oriented Functional status at discharge: independent ambulation Overall status at discharge: patient is progressing back to baseline Time Spent with Patient Time attestation: Total time spent providing and/or coordinating discharge services: Time spent: Less than 30 minutes Objective Labs 07/17/23 15:30 07/17/23 15:30 Exam Vital Signs (past 8 hours): Oxygen Delivery Method Room Air Narrative Exam Narrative: Generally: Patient is sitting up in bed, no acute distress Lungs: Clear to auscultation bilaterally Cardiovascular: Regular rate and rhythm Fundus: Firm at U -1 Incision: Clean dry and intact with Aquacel dressing Extremities: Trace edema, negative Homans Discharge Plan Discharge Plan Patient Disposition: Home Provider Discharge Comment: Call with fever, chills, redness or drainage around the incision, or bleeding vaginally more than a pad in an hour Ibuprofen 600 mg every 6 hours as needed Tylenol 650 mg every 6 hours as needed Continue vitamin Push oral fluids Discharge orders & Medications Prescriptions: Continued Adult 50 Plus Probiotic 4 billion cell capsule See Rx Instructions .ROUTE .COMPLEX Rx Instructions: per provider order DHA 200 mg capsule See Rx Instructions .ROUTE .COMPLEX Rx Instructions: per doctor as prescribed Discontinued aspirin [Adult Aspirin Regimen] 81 mg tablet,delayed release (DR/EC) 81 mg PO DAILY No Action oxycodone 5 mg tablet 5 mg PO Q4H PRN (Reason: pain) Qty: 20 0RF Follow up/Referrals: Marta Collins MD [Physician] - (6 week Appt w/ Dr. Collins: Saturday, August 18 @ 3pm Incision or tele health on saturday) Diet/Activity/Treatments Diet: Regular Activity: No heavy lifting Skin/Wound/Dressing Care Report to your healthcare provider any signs of infection, such as:: chills, fever, increased pain, unusual drainage and unusual redness Dressing: Keep incision open to air Visit Report/Discharge Packet Instructions: DI for , DI for Depression, DI for Prescription Opioid Use Stand Alone Forms: Discharge: Care, Patient Portal/API, Stroke Signs & Symptoms Discharge Data Primary Care Provider: Jean Estrada
== END 2023-07-18 10:50 | disposition home or self-care (01) | DRG 787 ==
PROVIDERS: Obstetrics & Gynecology; Student in an Organized Health Care Education/Training Program; Admitting Provider Obstetrics & Gynecology; PCP Family Medicine; Referring Provider Obstetrics & Gynecology; Visit Provider Obstetrics & Gynecology
PROC: 10D00Z1 Extraction of Products of Conception, Low, Open Approach (ICD-10-PCS; CPT 59514; principal; 2023-07-15 07:45)
DX: O34.211 Maternal care for low transverse scar from previous cesarean delivery (principal); O72.2 Delayed and secondary postpartum hemorrhage; Z3A.39 39 weeks gestation of pregnancy; Z37.0 Single live birth
CPT/HCPCS: 36415; 36430; 59050; 59510; 59514; 80048; 83880; 85014; 85018; 85025; 85384; 86850; 86900; 86901; P9016; J0136; J0690; J1100; J1885; J1940; J2210; J2274; J2405; J2590; J3010; Q0138

== ENCOUNTER → 2023-08-23 14:34 | Outpatient (CLI) | payer OTHER, SELFPAY ==
[2023-08-23 15:34] LABS: Basophils Absolute Auto 100 /uL (0-100); Eosinophils Absolute Auto 200 /uL (0-450); Eosinophils Percent Auto 2.6 % (2-4); Hemoglobin 12.9 g/dL (12.0-16.0); Mean Corpuscular HGB Conc 33.7 % (30-36); Monocytes Absolute Auto 300 /uL (0-900); Monocytes Percent Auto 4.3 % (3-14); White Blood Cell Count 7.7 X10^3/uL (4.5-11.0)
[2023-08-23 15:39] LABS: Add Manual Diff / Slide Review NO; Hematocrit 38.4 % (36-46); Lymphocytes Absolute Auto 2000 /uL (1100-4500); Lymphocytes Percent Auto 25.9 % (25-40); Mean Corpuscular Hemoglobin 30.7 PG (26-34); Neutrophils Absolute Auto 5100 /uL (1500-7000); Neutrophils Percent Auto 66.2 % (50-75); Platelet Count 256 X10^3/uL (150-400); Red Blood Cell Count 4.22 X10^6/uL (4.0-5.2); Red Cell Distribution Width 13.7 % (11.6-14.8)
== END ==
PROVIDERS: PCP Family Medicine; Referring Provider Obstetrics & Gynecology; Visit Provider Obstetrics & Gynecology
DX: O72.1 Other immediate postpartum hemorrhage (principal)
CPT/HCPCS: 36415; 85025

== ENCOUNTER → 2023-10-29 10:57 | Outpatient (CLI) | payer OTHER, SELFPAY ==
[2023-10-29 12:39] LABS: Appearance Urine UA CLEAR; Bilirubin Urine UA NEGATIVE (NEGATIVE); Color Urine UA YELLOW; Glucose Urine UA NEGATIVE (Negative); Ketones Urine UA NEGATIVE (NEGATIVE); Leukocyte Esterase Urine UA NEGATIVE (NEGATIVE); Nitrite Urine UA NEGATIVE (Negative); Occult Blood Urine UA NEGATIVE (Negative); Protein Urine UA NEGATIVE (Negative); Specific Gravity Urine UA <=1.005 (1.000-1.035); Urobilinogen Urine UA 0.2 E.U./dL (0.2)
[2023-10-29 12:43] LABS: pH Urine UA 6.5 (4.5-8.0)
[2023-10-29 12:45] LABS: Urine Volume 10mL (spun)
[2023-10-29 12:46] LABS: Bacteria Urine None Seen; Culture Indicated Urine Cult Not Indicated; RBC Urine None Seen (0-5/HPF); Squamous Epithelial Cell Urine None Seen (0-5/HPF); WBC Urine None Seen (0-5/HPF)
== END ==
PROVIDERS: PCP Family Medicine; Referring Provider Obstetrics & Gynecology; Visit Provider Obstetrics & Gynecology
DX: R30.0 Dysuria (principal)
CPT/HCPCS: 81001